=== PATIENT | female | born 1935 | race Caucasian/White ===

== ENCOUNTER 2020-03-03 16:36 | Observation (INO) | payer MEDICARE ==
--- NOTE | 2020-03-03 18:03 | ED ---
General Adult HPI - General Source: patient Mode of arrival: wheelchair Limitations: physical limitation <Jennifer Tuttle - Last Filed: 03/03/20 19:02> <Tomas Manzo - Last Filed: 03/03/20 23:27> - General Chief complaint: Extremity Problem,Nontraumatic Stated complaint: Leg swelling, vaginal pain, fall Time Seen by Provider: 03/03/20 17:13 - History of Present Illness Initial comments: Patient is an 84-year-old female presenting to the emergency Department with complaints of pain in her right groin as well as swelling of her right lower leg. Patient states she has fallen multiple times today secondary to not be able to put weight on her right lower extremity. Patient's son is here with her now and is providing some of the history. Patient does live with his son. The son states that she normally can get around fairly well with her walker but the last 2 days that has been declining in today she was not able to. Patient denies any previous surgeries of her hips or knees. She denies any previous falls that started this pain. She does take Plavix. She denies history of blood clots. The patient also noted that the patient was complaining of dizziness and seemed "slightly altered this morning." Patient denies any chest pain, shortness of breath. She does admit to very mild cough, no abdominal pain, no urinary complaints. She denies any dizziness, headache, blurry vision at this time. She has no further complaints. Upon arrival to the ER, her vital signs are stable. (Jennifer Tuttle) - Related Data Home Medications Medication Instructions Recorded Confirmed Acetaminophen [Tylenol Extra 500 mg PO BID 03/03/20 03/03/20 Strength] Clopidogrel [Plavix] 75 mg PO DAILY 03/03/20 03/03/20 Lisinopril-Hctz 20-12.5 mg 1 tab PO DAILY 03/03/20 03/03/20 [Zestoretic 20-12.5] Lovastatin [Mevacor] 40 mg PO HS 03/03/20 03/03/20 Metoprolol Tartrate [Lopressor] 12.5 mg PO BID 03/03/20 03/03/20 Multivitamins, Thera [Multivitamin 1 tab PO DAILY 03/03/20 03/03/20 (formulary)] Allergies Allergy/AdvReac Type Severity Reaction Status Date / Time No Known Allergies Allergy Verified 03/03/20 20:03 Review of Systems ROS Other: All systems not noted in ROS Statement are negative. <Jennifer Tuttle - Last Filed: 03/03/20 19:02> ROS Other: All systems not noted in ROS Statement are negative. <Tomas Manzo - Last Filed: 03/03/20 23:27> ROS Statement: Those systems with pertinent positive or pertinent negative responses have been documented in the HPI. Past Medical History Past Medical History: Hyperlipidemia, Hypertension History of Any Multi-Drug Resistant Organisms: None Reported Past Surgical History: Cardiac Valve Replacement, Heart Catheterization With Stent Additional Past Surgical History / Comment(s): AAA REPAIR Past Psychological History: No Psychological Hx Reported Smoking Status: Never smoker Past Alcohol Use History: None Reported Past Drug Use History: None Reported <Jennifer Tuttle - Last Filed: 03/03/20 19:02> General Exam Limitations: physical limitation <Jennifer Tuttle - Last Filed: 03/03/20 19:02> - General Exam Comments Initial Comments: GENERAL: Well-appearing, well-nourished and in no acute distress. HEAD: Atraumatic, normocephalic. EYES: Pupils equal round and reactive to light, extraocular movements intact, sclera anicteric, conjunctiva are normal. ENT: TMs normal, nares patent, oropharynx clear without exudates. Moist mucous membr anes. NECK: Normal range of motion, supple without lymphadenopathy or JVD. LUNGS: Breath sounds clear to auscultation bilaterally and equal. No wheezes rales or rhonchi. HEART: Regular rate and rhythm without murmurs, rubs or gallops. ABDOMEN: Soft, nontender, normoactive bowel sounds. No guarding, no rebound. No masses appreciated. : Deferred EXTREMITIES: Patient has pain-free range of motion of the right hip with some minimal pain with external and internal range of motion. She does have mildly increased right lower leg edema when compared to the left. She is neurovascular intact. There is no overlying erythema or deformity seen. No clubbing or cyanosis. NEUROLOGICAL: Cranial nerves II through XII grossly intact. Normal speech. PSYCH: Normal mood, normal affect. SKIN: Warm, Dry, normal turgor, no rashes or lesions noted. (Jennifer Tuttle) Course Vital Signs 03/03/20 03/03/20 16:50 19:33 Temperature 97.4 F L 97.9 F Pulse Rate 64 68 Respiratory 18 16 Rate Blood Pressure 128/61 127/70 O2 Sat by Pulse 100 98 Oximetry EKG Findings - EKG Comments: EKG Findings:: Normal sinus rhythm, RBBB, biphasic block, no signs of acute ischemia. Ventricular rate 62, WA interval 154, QT 470. <Jennifer Tuttle - Last Filed: 03/03/20 19:02> Medical Decision Making - Lab Data Result diagrams: 03/03/20 17:55 03/03/20 17:55 <Jennifer Tuttle - Last Filed: 03/03/20 19:02> - Lab Data Result diagrams: 03/03/20 17:55 03/03/20 17:55 <Tomas Manzo - Last Filed: 03/03/20 23:27> - Medical Decision Making The patient was endorsed me at our shift change by my physician diploma medical assistant pending ultrasound and UA. Ultrasound showed no evidence of DVT there is a popliteal cyst however. UA no current evidence of UTI. I did discuss case with patient and family. I also discussed case with Dr. Purvis. Patient will be admitted for IV hydration and further evaluation area patient is a fall risk. (Tomas Manzo) - Lab Data Lab Results 03/03/20 03/03/20 03/03/20 Range/Units 17:55 17:55 17:55 WBC 10.3 (3.8-10.6) k/uL RBC 4.38 (3.80-5.40) m/uL Hgb 13.6 (11.4-16.0) gm/dL Hct 39.9 (34.0-46.0) % MCV 91.1 (80.0-100.0) fL MCH 31.1 (25.0-35.0) pg MCHC 34.1 (31.0-37.0) g/dL RDW 12.8 (11.5-15.5) % Plt Count 191 (150-450) k/uL Neutrophils % 82 % Lymphocytes % 10 % Monocytes % 6 % Eosinophils % 1 % Basophils % 0 % Neutrophils # 8.5 H (1.3-7.7) k/uL Lymphocytes # 1.0 (1.0-4.8) k/uL Monocytes # 0.7 (0-1.0) k/uL Eosinophils # 0.1 (0-0.7) k/uL Basophils # 0.0 (0-0.2) k/uL Sodium 138 (137-145) mmol/L Potassium 3.8 (3.5-5.1) mmol/L Chloride 102 (98-107) mmol/L Carbon Dioxide 29 (22-30) mmol/L Anion Gap 7 mmol/L BUN 25 H (7-17) mg/dL Creatinine 0.83 (0.52-1.04) mg/dL Est GFR (CKD-EPI)AfAm 74 (>60 ml/min/1.73 sqM) Est GFR (CKD-EPI)NonAf 64 (>60 ml/min/1.73 sqM) Glucose 111 H (74-99) mg/dL Calcium 9.9 (8.4-10.2) mg/dL Magnesium 2.1 (1.6-2.3) mg/dL Total Bilirubin 1.0 (0.2-1.3) mg/dL AST 34 (14-36) U/L ALT 20 (4-34) U/L Alkaline Phosphatase 117 (38-126) U/L Troponin I 0.014 (0.000-0.034) ng/mL Total Protein 7.5 (6.3-8.2) g/dL Albumin 4.7 (3.5-5.0) g/dL Urine Color Urine Appearance (Clear) Urine pH (5.0-8.0) Ur Specific [place] (1.001-1.035) Urine Protein (Negative) Urine Glucose (UA) (Negative) Urine Ketones (Negative) Urine Blood (Negative) Urine Nitrite (Negative) Urine Bilirubin (Negative) Urine Urobilinogen (<2.0) mg/dL Ur Leukocyte Esterase (Negative) Urine RBC (0-5) /hpf Urine WBC (0-5) /hpf Ur Squamous Epith Cells (0-4) /hpf Urine Bacteria (None) /hpf Hyaline Casts (0-2) /lpf Urine Mucus (None) /hpf 06/25/20 Range/Units 19:20 WBC (3.8-10.6) k/uL RBC (3.80-5.40) m/uL Hgb (11.4-16.0) gm/dL Hct (34.0-46.0) % MCV (80.0-100.0) fL MCH (25.0-35.0) pg MCHC (31.0-37.0) g/dL RDW (11.5-15.5) % Plt Count (150-450) k/uL Neutrophils % % Lymphocytes % % Monocytes % % Eosinophils % % Basophils % % Neutrophils # (1.3-7.7) k/uL Lymphocytes # (1.0-4.8) k/uL Monocytes # (0-1.0) k/uL Eosinophils # (0-0.7) k/uL Basophils # (0-0.2) k/uL Sodium (137-145) mmol/L Potassium (3.5-5.1) mmol/L Chloride (98-107) mmol/L Carbon Dioxide (22-30) mmol/L Anion Gap mmol/L BUN (7-17) mg/dL Creatinine (0.52-1.04) mg/dL Est GFR (CKD-EPI)AfAm (>60 ml/min/1.73 sqM) Est GFR (CKD-EPI)NonAf (>60 ml/min/1.73 sqM) Glucose (74-99) mg/dL Calcium (8.4-10.2) mg/dL Magnesium (1.6-2.3) mg/dL Total Bilirubin (0.2-1.3) mg/dL AST (14-36) U/L ALT (4-34) U/L Alkaline Phosphatase (38-126) U/L Troponin I (0.000-0.034) ng/mL Total Protein (6.3-8.2) g/dL Albumin (3.5-5.0) g/dL Urine Color Light Yellow Urine Appearance Clear (Clear) Urine pH 6.0 (5.0-8.0) Ur Specific [place] 1.012 (1.001-1.035) Urine Protein Negative (Negative) Urine Glucose (UA) Negative (Negative) Urine Ketones Trace H (Negative) Urine Blood Trace H (Negative) Urine Nitrite Negative (Negative) Urine Bilirubin Negative (Negative) Urine Urobilinogen <2.0 (<2.0) mg/dL Ur Leukocyte Esterase Negative (Negative) Urine RBC 3 (0-5) /hpf Urine WBC 1 (0-5) /hpf Ur Squamous Epith Cells 1 (0-4) /hpf Urine Bacteria Rare H (None) /hpf Hyaline Casts 1 (0-2) /lpf Urine Mucus Rare H (None) /hpf Disposition <Jennifer Tuttle - Last Filed: 03/03/20 19:02> <Tomas Manzo - Last Filed: 03/03/20 23:27> Clinical Impression: Acute confusional state, Frequent falls, Failure to thrive, Dizzy spells, Dehydration Disposition: ADMITTED IP TO THIS [facility] Condition: Fair Referrals: Candie Purvis MD [Primary Care Provider] - 1-2 days
[2020-03-03 18:16] LABS: Basophils % (A) 0 %; Eosinophils # (A) 0.1 k/uL (0-0.7); Eosinophils % (A) 1 %; HCT 39.9 % (34.0-46.0); HGB 13.6 gm/dL (11.4-16.0); Lymphocytes % (A) 10 %; MCH 31.1 pg (25.0-35.0); MCHC 34.1 g/dL (31.0-37.0); MCV 91.1 fL (80.0-100.0); Mean Platelet Volume 7.5; Monocytes # (A) 0.7 k/uL (0-1.0); Monocytes % (A) 6 %; Neutrophils # (A) 8.5 k/uL (1.3-7.7); Neutrophils % (A) 82 %; Platelet Count 191 k/uL (150-450); RBC 4.38 m/uL (3.80-5.40); RDW 12.8 % (11.5-15.5); WBC 10.3 k/uL (3.8-10.6)
--- NOTE | 2020-03-03 18:18 | XR ---
EXAMINATION TYPE: XR Hip Complete RT DATE OF EXAM: 03/03/2020 COMPARISON: NONE HISTORY: Right groin pain TECHNIQUE: 2 views FINDINGS: I see no fracture nor dislocation. Hip joint space is fairly normal. Sacroiliac joint is no rmal. IMPRESSION: No acute abnormality of the pelvis and right hip.
--- NOTE | 2020-03-03 18:20 | XR ---
EXAMINATION TYPE: XR chest 2V DATE OF EXAM: 03/03/2020 COMPARISON: NONE HISTORY: Weakness TECHNIQUE: 2 views FINDINGS: There is no heart failure. There is general coarsening of interstitial markings. There is c ardiac valve surgery. Thoracic aorta is atheromatous. There is no pleural effusion. Bony thorax is in tact. IMPRESSION: Pulmonary mild fibrotic changes. No heart failure seen.
[2020-03-03 18:22] LABS: Albumin 4.7 g/dL (3.5-5.0); Calcium 9.9 mg/dL (8.4-10.2); Magnesium 2.1 mg/dL (1.6-2.3); Potassium 3.8 mmol/L (3.5-5.1); Total Protein 7.5 g/dL (6.3-8.2)
--- NOTE | 2020-03-03 19:35 | US ---
EXAMINATION TYPE: US venous doppler duplex LE RT DATE OF EXAM: 03/03/2020 7:12 PM COMPARISON: NONE CLINICAL HISTORY: pain, swelling. Pain, swelling right lower extremity. No hx of DVT. SIDE PERFORMED: Right TECHNIQUE: The lower extremity deep venous system is examined utilizing real time linear array sonog bo with graded compression, doppler sonography and color-flow sonography. VESSELS IMAGED: External Iliac Vein (EIV) Common Femoral Vein Deep Femoral Vein Greater Saphenous Vein * Femoral Vein Popliteal Vein Small Saphenous Vein * Proximal Calf Veins (* superficial vessels) Right Leg: No evidence of DVT in veins imaged at this time from prox calf veins to EIV. Complex area seen medial popliteal area: 4.5 x 1.4 x 0.8 cm. IMPRESSION: No sign of deep vein thrombosis in the right leg. Popliteal cyst is noted.
[2020-03-03 19:54] LABS: Appearance,Urine Clear (Clear); Bacteria,Urine Rare /hpf; Bilirubin,Urine Negative (Negative); Blood,Urine Trace (Negative); Color,Urine Light Yellow; Glucose,Urine (UA) Negative (Negative); Hyaline Casts,Urine 1 /lpf (0-2); Ketones,Urine Trace (Negative); Leukocyte Esterase,Urine Negative (Negative); Mucus,Urine Rare /hpf; Nitrite,Urine Negative (Negative); Protein,Urine Negative (Negative); RBC,Urine 3 /hpf (0-5); Specific Gravity,Urine 1.012 (1.001-1.035); Squamous Epithelial Cell,Urine 1 /hpf (0-4); Urobilinogen,Urine <2.0 mg/dL (<2.0); WBC,Urine 1 /hpf (0-5)
[2020-03-03] MEDS ORDERED: ACETAMINOPHEN TAB 325 MG TAB PO STA (23:22)
[2020-03-03] MEDS ORDERED: NALOXONE 0.4 MG/ML 1 ML VIAL IV PRN (23:27)
[2020-03-04] MEDS: SODIUM CHLORIDE 0.9% 1,000 ML IV SCH ×2 (00:09→13:12)
--- NOTE | 2020-03-04 10:53 | P.HPIM ---
History of Present Illness H&P Date: 03/04/20 Chief Complaint: Fall This is an 84-year-old female patient of Dr. Purvis. with past medical history of hypertension, hyperlipidemia, coronary artery disease status post stent, AAA repair. Patient is currently living at home with her son. She apparently was walking with her walker and she states she lost her balance and fell onto her left side. She is complaining of pain in the right groin which she has had chronically. Patient came into [facility] emergency center for evaluation. Chest x-ray showed pulmonary mild fibrotic changes. No heart failure. Right hip x-ray showed no acute fracture. Venous Doppler of the right lower extremity was negative for DVT. CBC was unremarkable. BUN 25 creatinine 0.83, electrolytes within normal limits. Blood sugar 111. Liver function tests normal. Troponin 0.014. EKG sinus rhythm with no acute ST changes. Urinalysis trace ketones and trace blood, rare blood. Patient places in observation status, PT and OT evaluations. Review of Systems Constitutional: Reports fatigue, Denies chills, Denies fever Eyes: denies blurred vision, denies pain Ears, nose, mouth and throat: Denies dysphagia, Denies headache, Denies nasal congestion, Denies nasal discharge, Denies sore throat, Denies vertigo Cardiovascular: Reports leg edema, Denies chest pain, Denies decreased exercise tolerance, Denies dyspnea on exertion, Denies lightheadedness, Denies shortness of breath, Denies syncope Respiratory: Denies cough, Denies cough with sputum, Denies dyspnea, Denies excessive sputum, Denies hemoptysis, Denies home oxygen, Denies respiratory infections, Denies sleep apnea Gastrointestinal: Denies abdominal pain, Denies diarrhea, Denies loss of appetite, Denies nausea, Denies vomiting Genitourinary: Denies dysuria, Denies hematuria, Denies urgency, Denies urinary frequency Menstruation: Reports postmenopausal Musculoskeletal: Denies frequent falls, Denies gait dysfunction, Denies myalgias Integumentary: Denies pruritus, Denies rash, Denies wounds Neurological: Denies change in speech, Denies gait dysfunction, Denies head injury, Denies numbness, Denies vertigo, Denies weakness Psychiatric: Denies anxiety, Denies depression Endocrine: Denies fatigue, Denies weight change Past Medical History Past Medical History: Hyperlipidemia, Hypertension History of Any Multi-Drug Resistant Organisms: None Reported Past Surgical History: Cardiac Valve Replacement, Heart Catheterization With Stent Additional Past Surgical History / Comment(s): AAA REPAIR Past Psychological History: No Psychological Hx Reported Smoking Status: Never smoker Past Alcohol Use History: None Reported Additional Past Alcohol Use History / Comment(s): Patient is a lifelong nonsmoker, no alcohol abuse. Patient lives at home with her son, uses walker for ambulation. Past Drug Use History: None Reported - Past Family History Father Additional Family Medical History / Comment(s): Father at age 88 from old age. Mother Additional Family Medical History / Comment(s): Mother at age 80 from old age. Brother(s) Additional Family Medical History / Comment(s): Patient had 2 brothers both have passed. Patient does not know their medical history. Sister(s) Additional Family Medical History / Comment(s): Patient has one sister that from Alzheimer's. Patient has 2 sons with no major medical problems. Medications and Allergies Home Medications Medication Instructions Recorded Confirmed Type Acetaminophen [Tylenol Extra 500 mg PO BID 03/03/20 03/03/20 History Strength] Clopidogrel [Plavix] 75 mg PO DAILY 03/03/20 03/03/20 History Lisinopril-Hctz 20-12.5 mg 1 tab PO DAILY 03/03/20 03/03/20 History [Zestoretic 20-12.5] Lovastatin [Mevacor] 40 mg PO HS 03/03/20 03/03/20 History Metoprolol Tartrate [Lopressor] 12.5 mg PO BID 03/03/20 03/03/20 History Multivitamins, Thera [Multivitamin 1 tab PO DAILY 03/03/20 03/03/20 History (formulary)] Allergies Allergy/AdvReac Type Severity Reaction Status Date / Time No Known Allergies Allergy Verified 03/03/20 20:03 Physical Exam Vitals: Vital Signs Temp Pulse Resp BP Pulse Ox 03/04/20 04:22 62 14 92/54 97 03/03/20 23:24 97.7 F 69 15 148/88 95 03/03/20 19:33 97.9 F 68 16 127/70 98 03/03/20 16:50 97.4 F L 64 18 128/61 100 Intake and Output 03/03/20 03/04/20 03/04/20 22:59 06:59 14:59 Other: Voiding Method Toilet Diaper Incontinent Weight 70.307 kg Physical Examination Gen: This is an 84-year-old female. She is resting on the ER stret marie and appears to be comfortable and in no acute distress.] HEENT: Head is atraumatic, normocephalic. Pupils equal, round. Sclerae is anicteric. Oral mucous membranes somewhat dry. NECK: Supple. No JVD. No lymphadenopathy. No thyromegaly. LUNGS: Clear to auscultation. No wheezes or rhonchi. No intercostal retractions. HEART: Regular rate and rhythm. No murmur. ABDOMEN: Soft. Bowel sounds are present. No masses. No tenderness. Tenderness to the right groin. EXTREMITIES: No pedal edema. No calf tenderness. Dorsalis pedis palpable bilaterally. NEUROLOGICAL: Patient is awake, alert and oriented x3. Cranial nerves 2 through 12 are grossly intact. Results CBC & Chem 7: 03/03/20 17:55 03/03/20 17:55 Labs: Abnormal Lab Results - Last 24 Hours (Table) 03/03/20 03/03/20 03/03/20 Range/Units 17:55 17:55 19:20 Neutrophils # 8.5 H (1.3-7.7) k/uL BUN 25 H (7-17) mg/dL Glucose 111 H (74-99) mg/dL Urine Ketones Trace H (Negative) Urine Blood Trace H (Negative) Urine Bacteria Rare H (None) /hpf Urine Mucus Rare H (None) /hpf Thrombosis Risk Factor Assmnt - DVT/VTE Prophylaxis DVT/VTE Prophylaxis: Pharmacologic Prophylaxis ordered Assessment and Plan Plan: 1. Multiple falls with generalized debilitation and increasing weakness of unclear etiology. PT and OT. 2. Hypertension. Continue Zestoretic 1 daily, Lopressor 12.5 mg twice daily. 3. History of coronary artery disease with stent placement. Continue Plavix 75 mg daily, Lipitor 10 mg at bedtime and Lopressor. 4. AAA status post repair. Continue Plavix and Lipitor. 5. GI prophylaxis. Protonix. 6. DVT prophylaxis. Heparin subcu. 7. COVID-19 testing in process. Patient placed as observation status. Discharge plan: To be determined Impression and plan of care have been directed as dictated by the signing physician. Mariya Avalos nurse practitioner acting as scribe for signing physician.
[2020-03-04] MEDS: HEPARIN SODIUM,PORCINE 5,000 UNIT/ML 1 ML VIAL SQ SCH ×2 (13:10→20:53)
[2020-03-04] MEDS: CLOPIDOGREL 75 MG TAB PO SCH (13:10)
[2020-03-04] MEDS: PANTOPRAZOLE 40 MG TABLET PO SCH (13:11)
[2020-03-04] MEDS: ACETAMINOPHEN TAB 500 MG TAB PO SCH ×2 (13:11→20:52)
[2020-03-04] MEDS: MULTIVITAMINS, THERA 1 EACH TAB PO SCH (13:15)
[2020-03-04] MEDS: METOPROLOL TARTRATE 12.5 MG TAB PO SCH ×2 (13:47→20:53)
[2020-03-04] MEDS: LISINOPRIL-HCTZ 20-12.5 MG 1 EACH TAB PO SCH (13:47)
[2020-03-04] MEDS: ATORVASTATIN 10 MG TAB PO SCH (20:53)
[2020-03-05] MEDS: SODIUM CHLORIDE 0.9% 1,000 ML IV SCH ×2 (03:45→15:36)
[2020-03-05] MEDS: ACETAMINOPHEN TAB 500 MG TAB PO SCH ×2 (05:32→19:35)
[2020-03-05] MEDS: PANTOPRAZOLE 40 MG TABLET PO SCH (08:01)
[2020-03-05] MEDS: CLOPIDOGREL 75 MG TAB PO SCH (08:01)
[2020-03-05] MEDS: METOPROLOL TARTRATE 12.5 MG TAB PO SCH ×2 (08:01→20:59)
[2020-03-05] MEDS: MULTIVITAMINS, THERA 1 EACH TAB PO SCH (08:01)
[2020-03-05] MEDS: HEPARIN SODIUM,PORCINE 5,000 UNIT/ML 1 ML VIAL SQ SCH ×2 (08:01→20:59)
[2020-03-05] MEDS: LISINOPRIL-HCTZ 20-12.5 MG 1 EACH TAB PO SCH (08:03)
--- NOTE | 2020-03-05 09:44 | P.PN ---
Subjective Progress Note Date: 03/05/20 This is an 84-year-old female patient of Dr. Purvis. with past medical history of hypertension, hyperlipidemia, coronary artery disease status post stent, AAA repair. Patient is currently living at home with her son. She apparently was walking with her walker and she states she lost her balance and fell onto her left side. She is complaining of pain in the right groin which she has had chronically. Patient came into [facility] emergency center for evaluation. Chest x-ray showed pulmonary mild fibrotic changes. No heart failure. Right hip x-ray showed no acute fracture. Venous Doppler of the right lower extremity was negative for DVT. CBC was unremarkable. BUN 25 creatinine 0.83, electrolytes within normal limits. Blood sugar 111. Liver function tests normal. Troponin 0.014. EKG sinus rhythm with no acute ST changes. Urinalysis trace ketones and trace blood, rare blood. Patient places in observation status, PT and OT evaluations. 03/05: Patient is laying down in bed she continues to have pain in the right groin area even though her right hip x-rays negative we will check computed tomography scan of the right hip to make sure there is no acute fracture, and in that case we will consult orthopedic surgery for evaluation. Patient denies any chest pain, shortness breath, she has no abdominal pain, she ate her breakfast she has no fever or chills. Objective - Vital Signs Vital signs: Vital Signs Temp 98.2 F 03/05/20 05:00 Pulse 66 03/05/20 05:00 Resp 18 03/05/20 05:00 BP 147/77 03/05/20 05:00 Pulse Ox 96 03/05/20 05:00 Intake & Output 03/04/20 03/05/20 03/05/20 18:59 06:59 18:59 Intake Total 300 Balance 300 Weight 70.307 kg Intake: Tube Feeding 300 Other: Voiding Method Toilet Diaper Incontinent # Voids 1 3 1 - Exam Review of Systems Constitutional: Reports fatigue, Denies chills, Denies fever Eyes: denies blurred vision, denies pain Ears, nose, mouth and throat: Denies dysphagia, Denies headache, Denies nasal congestion, Denies nasal discharge, Denies sore throat, Denies vertigo Cardiovascular: Reports leg edema, Denies chest pain, Denies decreased exercise tolerance, Denies dyspnea on exertion, Denies lightheadedness, Denies shortness of breath, Denies syncope Respiratory: Denies cough, Denies cough with sputum, Denies dyspnea, Denies excessive sputum, Denies hemoptysis, Denies home oxygen, Denies respiratory infections, Denies sleep apnea Gastrointestinal: Denies abdominal pain, Denies diarrhea, Denies loss of appetite, Denies nausea, Denies vomiting Genitourinary: Denies dysuria, Denies hematuria, Denies urgency, Denies urinary frequency Menstruation: Reports postmenopausal Musculoskeletal: Denies frequent falls, Denies gait dysfunction, Denies myalgias Integumentary: Denies pruritus, Denies rash, Denies wounds Neurological: Denies change in speech, Denies gait dysfunction, Denies head injury, Denies numbness, Denies vertigo, Denies weakness Psychiatric: Denies anxiety, Denies depression Endocrine: Denies fatigue, Denies weight change Physical Examination Gen: This is an 84-year-old female. She is resting on the ER stretcher and appears to be comfortable and in no acute distress.] HEENT: Head is atraumatic, normocephalic. Pupils equal, round. Sclerae is anicteric. Oral mucous membranes somewhat dry. NECK: Supple. No JVD. No lymphadenopathy. No thyromegaly. LUNGS: Clear to auscultation. No wheezes or rhonchi. No intercostal retractions. HEART: Regular rate and rhythm. No murmur. ABDOMEN: Soft. Bowel sounds are present. No masses. No tenderness. Tenderness to the right groin. EXTREMITIES: No pedal edema. No calf tenderness. Dorsalis pedis palpable bilaterally. NEUROLOGICAL: Patient is awake, alert and oriented x3. Cranial nerves 2 through 12 are grossly intact. - Labs CBC & Chem 7: 03/03/20 17:55 03/03/20 17:55 Assessment and Plan Assessment: Assessment and Plan Plan: 1. Multiple falls with generalized debilitation and increasing weakness of unclear etiology, with right sided hip pain. Check computed tomography scan of the right hip without contrast. 2. Hypertension. Continue Zestoretic 1 daily, Lopressor 12.5 mg twice daily. 3. History of coronary artery disease with stent placement. Continue Plavix 75 mg daily, Lipitor 10 mg at bedtime and Lopressor. 4. AAA status post repair. Continue Plavix and Lipitor. 5. GI prophylaxis. Protonix. 6. DVT prophylaxis. Heparin subcu. 7. COVID-19 testing in process. 8. High risk of falling, PT evaluation, likely will require ECF placement. 9. Full code. 10. Prognosis is guarded.
--- NOTE | 2020-03-05 13:37 | CT ---
EXAMINATION TYPE: CT pelvis wo con DATE OF EXAM: 03/05/2020 COMPARISON: Previous study dated 03/05/2020 HISTORY: Right hip pain after fall. CT DLP: 383.8 mGycm Automated exposure control for dose reduction was used. FINDINGS: There is an aortoiliac stent graft in place. There is degenerative disc disease and a vacuum phenomena present at L4-5. There is facet arthropathy present in the lower lumbar facets. There are mild degenerative changes in both hips with superior joint space loss. No fracture or dislo cation is seen. IMPRESSION: 1. NO ACUTE OSSEOUS LESION. 2. DEGENERATIVE CHANGE.
[2020-03-05] MEDS: ATORVASTATIN 10 MG TAB PO SCH (20:59)
[2020-03-06] MEDS: ACETAMINOPHEN TAB 500 MG TAB PO SCH ×2 (05:28→17:52)
[2020-03-06] MEDS: SODIUM CHLORIDE 0.9% 1,000 ML IV SCH (05:29)
[2020-03-06 08:23] LABS: Albumin 3.3 g/dL (3.5-5.0); Total Bilirubin 0.6 mg/dL (0.2-1.3); Total Protein 5.7 g/dL (6.3-8.2)
[2020-03-06 08:28] LABS: Basophils % (A) 0 %; Eosinophils # (A) 0.1 k/uL (0-0.7); Eosinophils % (A) 1 %; HCT 34.8 % (34.0-46.0); HGB 11.8 gm/dL (11.4-16.0); Lymphocytes # (A) 0.9 k/uL (1.0-4.8); Lymphocytes % (A) 11 %; MCH 31.2 pg (25.0-35.0); MCV 91.7 fL (80.0-100.0); Mean Platelet Volume 8.2; Monocytes # (A) 0.6 k/uL (0-1.0); Monocytes % (A) 7 %; Neutrophils # (A) 6.7 k/uL (1.3-7.7); Neutrophils % (A) 80 %; Platelet Count 165 k/uL (150-450); RBC 3.79 m/uL (3.80-5.40); RDW 12.8 % (11.5-15.5); WBC 8.4 k/uL (3.8-10.6)
--- NOTE | 2020-03-06 08:45 | P.CNOR ---
History of Present Illness - [facility] Consult date: 03/06/20 Consult reason: other (Right hip/groin pain ) History of present illness: The patient is an 84-year-old female who presents with a two-year history of progressive right hip/groin pain. She notes it started after a vascular procedure utilizing her right groin. She notes anterior groin and thigh pain. She normally ambulates with her walker. She has had a recent history of falls. Review of Systems Denies fevers or chills, denies recent weight gain or loss Musculoskeletal: Reports leg numbness/tingling (Right thigh) Past Medical History Past Medical History: Hyperlipidemia, Hypertension, Vascular Disorder Additional Past Medical History / Comment(s): Pt states she has been having balance issues and falls lately, DDD History of Any Multi-Drug Resistant Organisms: None Reported Past Surgical History: Cardiac Valve Replacement, Heart Catheterization With Stent Additional Past Surgical History / Comment(s): Cardiac valve replacement, bilateral cataracts removed with lens implants. Past Anesthesia/Blood Transfusion Reactions: No Reported Reaction Date of Last Stent Placement:: 2017 Smoking Status: Former smoker - Past Family History Father Family Medical History: No Reported History Additional Family Medical History / Comment(s): Father at age 88 from old age. Mother Family Medical History: No Reported History Additional Family Medical History / Comment(s): Mother at age 80 from old age. Brother(s) Additional Family Medical History / Comment(s): Patient had 2 brothers both have passed. Patient does not know their medical history. Sister(s) Additional Family Medical History / Comment(s): Patient has one sister that from Alzheimer's. Patient has 2 sons with no major medical problems. Medications and Allergies Home Medications Medication Instructions Recorded Confirmed Type Acetaminophen [Tylenol Extra 500 mg PO BID 03/03/20 03/03/20 History Strength] Clopidogrel [Plavix] 75 mg PO DAILY 03/03/20 03/03/20 History Lisinopril-Hctz 20-12.5 mg 1 tab PO DAILY 03/03/20 03/03/20 History [Zestoretic 20-12.5] Lovastatin [Mevacor] 40 mg PO HS 03/03/20 03/03/20 History Metoprolol Tartrate [Lopressor] 12.5 mg PO BID 03/03/20 03/03/20 History Multivitamins, Thera [Multivitamin 1 tab PO DAILY 03/03/20 03/03/20 History (formulary)] Allergies Allergy/AdvReac Type Severity Reaction Status Date / Time No Known Allergies Allergy Verified 03/03/20 20:03 Physical Examination - Hip right Gait: other (Not tested) Tenderness with palpation: anterior ROM: extension: normal ROM: flexion: 80 degrees ROM: internal rotation: 10 degrees ROM: external rotation: 60 degrees Crepitus with motion: No Strength: extension: 5/5 Strength: flexion: 5/5 Strength: abduction: 5/5 Strength: adduction: 5/5 Results Symmetric passive motion left hip Tender right inguinal ligament 2+ right femoral, pedal pulses Light touch diminished right lateral thigh EHL/FHL/18/gastroc/quad/ham strings 5/5 bilaterally Mild lumbar spine tenderness Negative straight leg raise - Labs Labs: Abnormal Lab Results - Last 24 Hours (Table) 03/06/20 03/06/20 Range/Units 07:05 07:05 RBC 3.79 L (3.80-5.40) m/uL Lymphocytes # 0.9 L (1.0-4.8) k/uL BUN 18 H (7-17) mg/dL Glucose 102 H (74-99) mg/dL Total Protein 5.7 L (6.3-8.2) g/dL Albumin 3.3 L (3.5-5.0) g/dL H & H 03/03/20 03/06/20 Range/Units 17:55 07:05 Hgb 13.6 11.8 (11.4-16.0) gm/dL Hct 39.9 34.8 (34.0-46.0) % Result Diagrams: 03/06/20 07:05 03/06/20 07:05 - Diagnostic results Hip x-ray: image reviewed (Mild degenerative changes, no definite osseous abnormality) Hip CT: image reviewed (No definite fracture line) Assessment and Plan Assessment: Right groin/thigh pain after previous vascular procedure 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 I recommend PT /OT for ambulation with a walker along with analgesia. She may benefit from a vascular surgery evaluation regarding her right groin. Thank you for this consultation. Time with Patient: Greater than 30
[2020-03-06] MEDS: CLOPIDOGREL 75 MG TAB PO SCH (09:03)
[2020-03-06] MEDS: PANTOPRAZOLE 40 MG TABLET PO SCH (09:03)
[2020-03-06] MEDS: METOPROLOL TARTRATE 12.5 MG TAB PO SCH ×2 (09:03→20:12)
[2020-03-06] MEDS: LISINOPRIL-HCTZ 20-12.5 MG 1 EACH TAB PO SCH (09:03)
[2020-03-06] MEDS: MULTIVITAMINS, THERA 1 EACH TAB PO SCH (09:03)
[2020-03-06] MEDS: HEPARIN SODIUM,PORCINE 5,000 UNIT/ML 1 ML VIAL SQ SCH ×2 (09:03→20:12)
--- NOTE | 2020-03-06 10:01 | P.PN ---
Subjective Progress Note Date: 03/06/20 This is an 84-year-old female patient of Dr. Purvis. with past medical history of hypertension, hyperlipidemia, coronary artery disease status post stent, AAA repair. Patient is currently living at home with her son. She apparently was walking with her walker and she states she lost her balance and fell onto her left side. She is complaining of pain in the right groin which she has had chronically. Patient came into [facility] emergency center for evaluation. Chest x-ray showed pulmonary mild fibrotic changes. No heart failure. Right hip x-ray showed no acute fracture. Venous Doppler of the right lower extremity was negative for DVT. CBC was unremarkable. BUN 25 creatinine 0.83, electrolytes within normal limits. Blood sugar 111. Liver function tests normal. Troponin 0.014. EKG sinus rhythm with no acute ST changes. Urinalysis trace ketones and trace blood, rare blood. Patient places in observation status, PT and OT evaluations. 03/05: Patient is laying down in bed she continues to have pain in the right groin area even though her right hip x-rays negative we will check computed tomography scan of the right hip to make sure there is no acute fracture, and in that case we will consult orthopedic surgery for evaluation. Patient denies any chest pain, shortness breath, she has no abdominal pain, she ate her breakfast she has no fever or chills. 03/06: Patient underwent computed tomography scan of the right hip as well as a pelvic area did not show any evidence of acute fracture just mild osteophytosis, she continues to have weakness in the right lower extremity, she is not able to lift her leg up, she was seen in consultation by orthopedic surgery was recommended that it may be related to nerve injury, physical therapy and occupational therapy is to continue the patient on the patient may require extended care facility for rehabilitation for the next 2-4 weeks. Objective - Vital Signs Vital signs: Vital Signs Temp 97.7 F 03/06/20 04:58 Pulse 63 03/06/20 04:58 Resp 15 03/06/20 04:58 BP 154/72 03/06/20 04:58 Pulse Ox 93 L 03/06/20 04:58 Intake & Output 03/05/20 03/06/20 03/06/20 18:59 06:59 18:59 Intake Total 1170 Output Total 700 Balance 470 Intake: Intake, IV Titration 920 Amount Sodium Chloride 0.9% 1, 920 000 ml @ 80 mls/hr IV . [id number] [facility] Rx#:[id number] Oral 250 Output: Urine 700 Other: Voiding Method Toilet Diaper Diaper Incontinent Incontinent # Voids 1 2 # Bowel Movements 1 - Exam - Exam Review of Systems Constitutional: Reports fatigue, Denies chills, Denies fever Eyes: denies blurred vision, denies pain Ears, nose, mouth and throat: Denies dysphagia, Denies headache, Denies nasal congestion, Denies nasal discharge, Denies sore throat, Denies vertigo Cardiovascular: Reports leg edema, Denies chest pain, Denies decreased exercise tolerance, Denies dyspnea on exertion, Denies lightheadedness, Denies shortness of breath, Denies syncope Respiratory: Denies cough, Denies cough with sputum, Denies dyspnea, Denies exc essive sputum, Denies hemoptysis, Denies home oxygen, Denies respiratory infections, Denies sleep apnea Gastrointestinal: Denies abdominal pain, Denies diarrhea, Denies loss of appetite, Denies nausea, Denies vomiting Genitourinary: Denies dysuria, Denies hematuria, Denies urgency, Denies urinary frequency Menstruation: Reports postmenopausal Musculoskeletal: Denies frequent falls, Denies gait dysfunction, Denies myalgias Integumentary: Denies pruritus, Denies rash, Denies wounds Neurological: Denies change in speech, Denies gait dysfunction, Denies head injury, Denies numbness, Denies vertigo, Denies weakness Psychiatric: Denies anxiety, Denies depression Endocrine: Denies fatigue, Denies weight change Physical Examination Gen: This is an 84-year-old female. She is resting on the ER stretcher and appears to be comfortable and in no acute distress.] HEENT: Head is atraumatic, normocephalic. Pupils equal, round. Sclerae is anicteric. Oral mucous membranes somewhat dry. NECK: Supple. No JVD. No lymphadenopathy. No thyromegaly. LUNGS: Clear to auscultation. No wheezes or rhonchi. No intercostal retractions. HEART: Regular rate and rhythm. No murmur. ABDOMEN: Soft. Bowel sounds are present. No masses. No tenderness. Tenderness to the right groin. EXTREMITIES: No pedal edema. No calf tenderness. Dorsalis pedis palpable bilaterally. NEUROLOGICAL: Patient is awake, alert and oriented x3. Cranial nerves 2 through 12 are grossly intact. - Labs CBC & Chem 7: 03/06/20 07:05 03/06/20 07:05 Labs: Abnormal Lab Results - Last 24 Hours (Table) 03/06/20 03/06/20 Range/Units 07:05 07:05 RBC 3.79 L (3.80-5.40) m/uL Lymphocytes # 0.9 L (1.0-4.8) k/uL BUN 18 H (7-17) mg/dL Glucose 102 H (74-99) mg/dL Total Protein 5.7 L (6.3-8.2) g/dL Albumin 3.3 L (3.5-5.0) g/dL Assessment and Plan Assessment: Assessment and Plan Plan: 1. Multiple falls with generalized debilitation and increasing weakness of unclear etiology, with right sided hip pain. Computed tomography scan did not show any evidence of acute abnormalities except for mild osteoarthritis, pelvic computed tomography scan is negative as well as orthopedic consultation appreciated, physical therapy is to be maintained patient, we rodríguez transferred to subacute rehabilitation likely [facility] in the next 24 hours 2. Hypertension. Continue Zestoretic 1 daily, Lopressor 12.5 mg twice daily. 3. History of coronary artery disease with stent placement. Continue Plavix 75 mg daily, Lipitor 10 mg at bedtime and Lopressor. 4. AAA status post repair. Continue Plavix and Lipitor. 5. GI prophylaxis. Protonix. 6. DVT prophylaxis. Heparin subcu. 7. COVID-19 testing in process. 8. High risk of falling, PT evaluation, likely will require ECF placement. 9. Full code. 10. Prognosis is guarded. 11. ECF for physical therapy and occupational therapy.
[2020-03-06] MEDS: ATORVASTATIN 10 MG TAB PO SCH (20:12)
[2020-03-06 22:48] VITALS: RESP 16
[2020-03-07] MEDS: ACETAMINOPHEN TAB 500 MG TAB PO PRN ×3 (02:44→14:25)
[2020-03-07] MEDS: traMADol 50 MG TAB PO SCH ×3 (09:12→21:15)
[2020-03-07] MEDS: CLOPIDOGREL 75 MG TAB PO SCH (09:15)
[2020-03-07] MEDS: MULTIVITAMINS, THERA 1 EACH TAB PO SCH (09:15)
[2020-03-07] MEDS: METOPROLOL TARTRATE 12.5 MG TAB PO SCH ×2 (09:15→21:15)
[2020-03-07] MEDS: HEPARIN SODIUM,PORCINE 5,000 UNIT/ML 1 ML VIAL SQ SCH ×2 (09:15→21:16)
[2020-03-07] MEDS: PANTOPRAZOLE 40 MG TABLET PO SCH (09:15)
[2020-03-07] MEDS: LISINOPRIL-HCTZ 20-12.5 MG 1 EACH TAB PO SCH (09:16)
[2020-03-07] MEDS: ATORVASTATIN 10 MG TAB PO SCH (21:15)
[2020-03-08 07:42] LABS: Basophils % (A) 1 %; Eosinophils # (A) 0.2 k/uL (0-0.7); Eosinophils % (A) 3 %; HCT 37.5 % (34.0-46.0); Lymphocytes # (A) 1.5 k/uL (1.0-4.8); Lymphocytes % (A) 22 %; MCH 29.3 pg (25.0-35.0); MCV 91.6 fL (80.0-100.0); Mean Platelet Volume 7.5; Monocytes # (A) 0.5 k/uL (0-1.0); Monocytes % (A) 7 %; Neutrophils # (A) 4.4 k/uL (1.3-7.7); Neutrophils % (A) 65 %; Platelet Count 202 k/uL (150-450); RDW 12.9 % (11.5-15.5); WBC 6.8 k/uL (3.8-10.6)
[2020-03-08 08:09] LABS: Albumin 3.6 g/dL (3.5-5.0); Calcium 9.1 mg/dL (8.4-10.2); Total Bilirubin 0.8 mg/dL (0.2-1.3); Total Protein 6.3 g/dL (6.3-8.2)
--- NOTE | 2020-03-08 08:33 | P.PN ---
Subjective Progress Note Date: 03/07/20 This is an 84-year-old female patient of Dr. Purvis. with past medical history of hypertension, hyperlipidemia, coronary artery disease status post stent, AAA repair. Patient is currently living at home with her son. She apparently was walking with her walker and she states she lost her balance and fell onto her left side. She is complaining of pain in the right groin which she has had chronically. Patient came into [facility] emergency center for evaluation. Chest x-ray showed pulmonary mild fibrotic changes. No heart failure. Right hip x-ray showed no acute fracture. Venous Doppler of the right lower extremity was negative for DVT. CBC was unremarkable. BUN 25 creatinine 0.83, electrolytes within normal limits. Blood sugar 111. Liver function tests normal. Troponin 0.014. EKG sinus rhythm with no acute ST changes. Urinalysis trace ketones and trace blood, rare blood. Patient places in observation status, PT and OT evaluations. 03/05: Patient is laying down in bed she continues to have pain in the right groin area even though her right hip x-rays negative we will check computed tomography scan of the right hip to make sure there is no acute fracture, and in that case we will consult orthopedic surgery for evaluation. Patient denies any chest pain, shortness breath, she has no abdominal pain, she ate her breakfast she has no fever or chills. 03/06: Patient underwent computed tomography scan of the right hip as well as a pelvic area did not show any evidence of acute fracture just mild osteophytosis, she continues to have weakness in the right lower extremity, she is not able to lift her leg up, she was seen in consultation by orthopedic surgery was recommended that it may be related to nerve injury, physical therapy and occupational therapy is to continue the patient on the patient may require extended care facility for rehabilitation for the next 2-4 weeks. 03/07:patient is laying down in bed she continues to have some pain in the right groin area. She is asking for something stronger than Tylenol she will be started on tramadol 50 mg orally 3 times every day, she will be seen by physical therapy again we are waiting for prior authorization for her to go to extended care facility she elected to go to [facility] for the next few weeks for physical therapy and occupational therapy due to the weakness of the right lower extre mity due to femoral nerve injury. Objective - Vital Signs Vital signs: Vital Signs Temp 98.8 F 03/08/20 04:26 Pulse 60 03/08/20 04:26 Resp 16 03/08/20 04:26 BP 116/67 03/08/20 04:26 Pulse Ox 94 L 03/08/20 04:26 Intake & Output 03/07/20 03/08/20 03/08/20 18:59 06:59 18:59 Intake Total 800 400 Output Total 600 Balance 200 400 Intake: Oral 800 400 Output: Urine 600 Other: Voiding Method Diaper Diaper Incontinent Incontinent # Voids 1 1 # Bowel Movements 1 - Exam - Exam Review of Systems Constitutional: Reports fatigue, Denies chills, Denies fever Eyes: denies blurred vision, denies pain Ears, nose, mouth and throat: Denies dysphagia, Denies headache, Denies nasal congestion, Denies nasal discharge, Denies sore throat, Denies vertigo Cardiovascular: Reports leg edema, Denies chest pain, Denies decreased exercise tolerance, Denies dyspnea on exertion, Denies lightheadedness, Denies shortness of breath, Denies syncope Respiratory: Denies cough, Denies cough with sputum, Denies dyspnea, Denies excessive sputum, Denies hemoptysis, Denies home oxygen, Denies respiratory infections, Denies sleep apnea Gastrointestinal: Denies abdominal pain, Denies diarrhea, Denies loss of appetite, Denies nausea, Denies vomiting Genitourinary: Denies dysuria, Denies hematuria, Denies urgency, Denies urinary frequency Menstruation: Reports postmenopausal Musculoskeletal: Denies frequent falls, Denies gait dysfunction, Denies myalgias Integumentary: Denies pruritus, Denies rash, Denies wounds Neurological: Denies change in speech, Denies gait dysfunction, Denies head injury, Denies numbness, Denies vertigo, Denies weakness Psychiatric: Denies anxiety, Denies depression Endocrine: Denies fatigue, Denies weight change Physical Examination Gen: This is an 84-year-old female. She is resting on the ER stretcher and appears to be comfortable and in no acute distress.] HEENT: Head is atraumatic, normocephalic. Pupils equal, round. Sclerae is anicteric. Oral mucous membranes somewhat dry. NECK: Supple. No JVD. No lymphadenopathy. No thyromegaly. LUNGS: Clear to auscultation. No wheezes or rhonchi. No intercostal retractions. HEART: Regular rate and rhythm. No murmur. ABDOMEN: Soft. Bowel sounds are present. No masses. No tenderness. Tenderness to the right groin. EXTREMITIES: No pedal edema. No calf tenderness. Dorsalis pedis palpable bilaterally. NEUROLOGICAL: Patient is awake, alert and oriented x3. Cranial nerves 2 through 12 are grossly intact. - Labs CBC & Chem 7: 03/08/20 06:57 03/08/20 06:57 Assessment and Plan Assessment: Assessment and Plan Plan: 1. Multiple falls with generalized debilitation and increasing weakness of unclear etiology, with right sided hip pain. Computed tomography scan did not show any evidence of acute abnormalities except for mild osteoarthritis, pelvic computed tomography scan is negative as well as orthopedic consultation a ppreciated, physical therapy is to be maintained patient, we rodríguez transferred to subacute rehabilitation likely [facility] in the next 24 hourswe will start the patient on tramadol 50 mg orally 3 times every day for pain control. 2. Hypertension. Continue Zestoretic 1 daily, Lopressor 12.5 mg twice daily. 3. History of coronary artery disease with stent placement. Continue Plavix 75 mg daily, Lipitor 10 mg at bedtime and Lopressor. 4. AAA status post repair. Continue Plavix and Lipitor. 5. GI prophylaxis. Protonix. 6. DVT prophylaxis. Heparin subcu. 7. COVID-19 testing in process. 8. High risk of falling, PT evaluation, likely will require ECF placement. 9. Full code. 10. Prognosis is guarded. 11. ECF for physical therapy and occupational therapyhopefully the next 24 juan rs.
--- NOTE | 2020-03-08 08:34 | P.DS ---
Providers Date of admission: 03/05/20 14:37 Expected date of discharge: 03/08/20 Attending physician: Candie Purvis Consults: 03/05/20 09:44 Consult Physician Routine Consulting Provider: Yahir Rm Consult Reason/Comments: Right hip pain Do you want consulting provider notified?: Yes Primary care physician: Candie Purvis [facility] Course: This is an 84-year-old female patient of Dr. Purvis. with past medical history of hypertension, hyperlipidemia, coronary artery disease status post stent, AAA repair. Patient is currently living at home with her son. She remedios arently was walking with her walker and she states she lost her balance and fell onto her left side. She is complaining of pain in the right groin which she has had chronically. Patient came into [facility] emergency center for evaluation. Chest x-ray showed pulmonary mild fibrotic changes. No heart failure. Right hip x-ray showed no acute fracture. Venous Doppler of the right lower extremity was negative for DVT. CBC was unremarkable. BUN 25 creatinine 0.83, electrolytes within normal limits. Blood sugar 111. Liver function tests normal. Troponin 0.014. EKG sinus rhythm with no acute ST changes. Urinalysis trace ketones and trace blood, rare blood. Patient places in observation status, PT and OT evaluations. 03/05: Patient is laying down in bed she continues to have pain in the right groin area even though her right hip x-rays negative we will check computed tomography scan of the right hip to make sure there is no acute fracture, and in that case we will consult orthopedic surgery for evaluation. Patient denies any chest pain, shortness breath, she has no abdominal pain, she ate her breakfast she has no fever or chills. 03/06: Patient underwent computed tomography scan of the right hip as well as a pelvic area did not show any evidence of acute fracture just mild osteophytosis, she continues to have weakness in the right lower extremity, she is not able to lift her leg up, she was seen in consultation by orthopedic surgery was recommended that it may be related to nerve injury, physical therapy and occupational therapy is to continue the patient on the patient may require extended care facility for rehabilitation for the next 2-4 weeks. 03/07:patient is laying down in bed she is complaining of increased pain in the right groin, she is asking for a stronger pain medication besides Tylenol she will be started on tramadol 50 mg orally 3 times every day as needed, she will be maintained on Tylenol, she will be seen in consultation by physical therapy again, we are awaiting the prior authorization for her to go to extended care facility for physical therapy rehabilitation. 03/08: patient is doing a lot better today her pain is down she is tolerating tramadol very well, she could use Tylenol, she is awaiting for the prior authorization for her to go to extended care facility she would be transferred later on this afternoon to [facility]. discharge diagnoses: 1. Multiple falls with generalized debilitation and increasing weakness of unclear etiology, with right sided hip pain due to possible right femoral nerve injury. 2. Hypertension. 3. History of coronary artery disease with stent placement. 4. AAA status post repair. 5. GI prophylaxis. 6. DVT prophylaxis. 7. COVID-19 testing negative 8. High risk of falling, PT evaluation, likely will require ECF placement. Patient Condition at Discharge: Fair Plan - Discharge Summary Discharge Rx Participant: No New Discharge Prescriptions: No Action Metoprolol Tartrate [Lopressor] 12.5 mg PO BID Lisinopril-Hctz 20-12.5 mg [Zestoretic 20-12.5] 1 tab PO DAILY Clopidogrel [Plavix] 75 mg PO DAILY Lovastatin [Mevacor] 40 mg PO HS Acetaminophen [Tylenol Extra Strength] 500 mg PO BID Multivitamins, Thera [Multivitamin (formulary)] 1 tab PO DAILY Discharge Medication List Acetaminophen [Tylenol Extra Strength] 500 mg PO BID 03/03/20 [History] Clopidogrel [Plavix] 75 mg PO DAILY 03/03/20 [History] Lisinopril-Hctz 20-12.5 mg [Zestoretic 20-12.5] 1 tab PO DAILY 03/03/20 [History] Lovastatin [Mevacor] 40 mg PO HS 03/03/20 [History] Metoprolol Tartrate [Lopressor] 12.5 mg PO BID 03/03/20 [History] Multivitamins, Thera [Multivitamin (formulary)] 1 tab PO DAILY 03/03/20 [History] Follow up Appointment(s)/Referral(s): Candie Purvis MD [Primary Care Provider] - 1-2 days
[2020-03-08] MEDS: METOPROLOL TARTRATE 12.5 MG TAB PO SCH (09:11)
[2020-03-08] MEDS: PANTOPRAZOLE 40 MG TABLET PO SCH (09:11)
[2020-03-08] MEDS: CLOPIDOGREL 75 MG TAB PO SCH (09:11)
[2020-03-08] MEDS: MULTIVITAMINS, THERA 1 EACH TAB PO SCH (09:12)
[2020-03-08] MEDS: LISINOPRIL-HCTZ 20-12.5 MG 1 EACH TAB PO SCH (09:13)
[2020-03-08] MEDS: HEPARIN SODIUM,PORCINE 5,000 UNIT/ML 1 ML VIAL SQ SCH (09:13)
[2020-03-08] MEDS: traMADol 50 MG TAB PO SCH (09:14)
[2020-03-08] MEDS: ACETAMINOPHEN TAB 500 MG TAB PO PRN (12:32)
[2020-03-08 13:05] VITALS: BP 100/51; PULSE 65; TEMP 98.4
--- NOTE | 2020-03-10 15:54 | CDI ---
Documentation Clarification Form Date: 03/10/20 From: Jennifer Willingham Phone: If you have a question about this query, please contact Yocasta Son, Director Of Corporate Real Estate at [phone] between 8am and 5pm. Admit Date: 03/05/20 Discharge Date:03/08/20 Patient Name: Payton Anderson Visit Number: [id number] ATTENTION: The Clinical Documentation Specialists (CDI) and [facility] Coding Staff appreciate your assistance in clarifying documentation. Please respond to the clarification below the line at the bottom and electronically sign. The CDI & [facility] Coding staff will review the response and follow-up if needed. Please note: Queries are made part of the Legal Health Record. If you have any questions, please contact the author of this message via ITS. Dear Dr. Purvis Acute confusional state was documented in the ED note. History/Risk Factors: Dehydration, generalized debilitation, increasing weakness, CAD Clinical Indicators: confusion Labs: BUN 25, glucose 111; urine - ketones trace, blood trace, bacteria rare, mucus rare X Ray: Chest; pulmonary mild fibrotic changes Treatment: NS at 80 mls/hr In your professional opinion, please clarify the etiology of the Altered Mental Status, if known. 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 MTDD
== END 2020-03-08 13:32 | disposition home or self-care (01) ==
LOC: EC 16:36 → 5NMEDONC 23:29 → INTOOBSV 03-05 14:37 → OBSVTOIN 03-05 14:37 → UNDODISIN 03-08 13:32
PROVIDERS: ADMIT Internal Medicine; ATTEND Internal Medicine
DX: R53.81 Other malaise (principal); R41.0 Disorientation, unspecified; R62.7 Adult failure to thrive; R42 Dizziness and giddiness; R29.6 Repeated falls; E86.0 Dehydration; G89.29 Other chronic pain; R10.31 Right lower quadrant pain; R05 Cough; M79.89 Other specified soft tissue disorders; I10 Essential (primary) hypertension; I25.10 Atherosclerotic heart disease of native coronary artery without angina pectoris; I71.4 Abdominal aortic aneurysm, without rupture; E78.5 Hyperlipidemia, unspecified; I45.2 Bifascicular block; M71.21 Synovial cyst of popliteal space [Baker], right knee; J84.10 Pulmonary fibrosis, unspecified; R53.1 Weakness; M16.11 Unilateral primary osteoarthritis, right hip; Z03.818 Encounter for observation for suspected exposure to other biological agents ruled out; Z79.02 Long term (current) use of antithrombotics/antiplatelets; Z79.899 Other long term (current) drug therapy; Z95.5 Presence of coronary angioplasty implant and graft; Z98.890 Other specified postprocedural states; Z95.2 Presence of prosthetic heart valve; M51.9 Unspecified thoracic, thoracolumbar and lumbosacral intervertebral disc disorder; Z98.41 Cataract extraction status, right eye; Z98.42 Cataract extraction status, left eye; Z96.1 Presence of intraocular lens; Z87.891 Personal history of nicotine dependence; Z81.8 Family history of other mental and behavioral disorders
CPT/HCPCS: 96361 ×4; 96372 ×6; 96360; 99285; 36415; 93005; 97162; 97166; 80053 ×3; 83735; 84484; 85025 ×3; 81001; 73502; 71046; 93971; 72192; 73700; G0378 ×6; U0003; J1644 ×5

== ENCOUNTER 2020-04-27 16:55 | Observation (INO) | payer MEDICARE ==
--- NOTE | 2020-04-27 17:06 | ED ---
SOB HPI - General Chief Complaint: Shortness of Breath Stated Complaint: ABD labs/chest pain Time Seen by Provider: 04/27/20 17:00 Source: patient, EMS, RN notes reviewed Mode of arrival: EMS Limitations: no limitations - History of Present Illness Initial Comments: This is a 85-year-old female history of atrial fibrillation who presents by EMS with complaints of shortness of breath and chest pain. Started having sugars breath last evening at a brief episode of retrosternal chest pressure 2/10 severity which is gone now but she still short of breath. Had lab work done at the [facility] today showed a potassium that was low and a d-dimer of 4.78. MD Complaint: shortness of breath, chest pain - Related Data Home Medications Medication Instructions Recorded Confirmed Acetaminophen [Tylenol Extra 500 mg PO BID@0800,1700 03/03/20 04/27/20 Strength] Clopidogrel [Plavix] 75 mg PO DAILY@0800 03/03/20 04/27/20 Lisinopril-Hctz 20-12.5 mg 1 tab PO DAILY@0800 03/03/20 04/27/20 [Zestoretic 20-12.5] Lovastatin [Mevacor] 40 mg PO HS@1700 03/03/20 04/27/20 Metoprolol Tartrate [Lopressor] 25 mg PO BID@0800,1700 03/03/20 04/27/20 Multivitamins, Thera [Multivitamin 1 tab PO HS@1700 03/03/20 04/27/20 (formulary)] Benzonatate [Tessalon Perles] 200 mg PO TID@0800,1200,1700 04/27/20 04/27/20 Lactose-Reduced Food [Ensure Plus] 120 ml PO TID@0800,1200,1700 04/27/20 0 04/27/20 Magnesium Hydroxide [Milk of 7,200 mg PO Q48H PRN 04/27/20 04/27/20 Magnesia Concentrate] Na Phos,M-B/Na Phos,Di-Ba [Fleet 133 ml RECTAL DAILY PRN 04/27/20 04/27/20 Adult] Potassium Chloride ER [K-Dur 20] 40 meq PO ONCE 04/27/20 04/27/20 bisacodyL [Bisacodyl] 10 mg RECTAL DAILY PRN 04/27/20 04/27/20 polyethylene glycoL 3350 [Miralax] 17 gm PO HS@1700 04/27/20 04/27/20 Previous Rx's Medication Instructions Recorded Acetaminophen Tab [Tylenol] 500 mg PO Q4H PRN tab 03/08/20 Allergies Allergy/AdvReac Type Severity Reaction Status Date / Time No Known Allergies Allergy Verified 04/27/20 18:33 Review of Systems ROS Statement: Those systems with pertinent positive or pertinent negative responses have been documented in the HPI. ROS Other: All systems not noted in ROS Statement are negative. Past Medical History Past Medical History: Hyperlipidemia, Hypertension, Vascular Disorder Additional Past Medical History / Comment(s): Pt states she has been having bal ance issues and falls lately, DDD History of Any Multi-Drug Resistant Organisms: None Reported Past Surgical History: Cardiac Valve Replacement, Heart Catheterization With Stent Additional Past Surgical History / Comment(s): Cardiac valve replacement, bilateral cataracts removed with lens implants. Past Anesthesia/Blood Transfusion Reactions: No Reported Reaction Date of Last Stent Placement:: 2017 Past Psychological History: No Psychological Hx Reported Smoking Status: Never smoker Past Alcohol Use History: None Reported Past Drug Use History: None Reported - Past Family History Father Family Medical History: No Reported History Additional Family Medical History / Comment(s): Father at age 88 from old age. Mother Family Medical History: No Reported History Additional Family Medical History / Comment(s): Mother at age 80 from old age. Brother(s) Additional Family Medical History / Comment(s): Patient had 2 brothers both have passed. Patient does not know their medical history. Sister(s) Additional Family Medical History / Comment(s): Patient has one sister that from Alzheimer's. Patient has 2 sons with no major medical problems. General Exam - General Exam Comments Initial Comments: This is a well-developed well-nourished awake alert oriented 3 female Limitations: no limitations General appearance: alert, in no apparent distress Head exam: Present: atraumatic, normocephalic, normal inspection Eye exam: Present: normal appearance, PERRL, EOMI. Absent: scleral icterus, conjunctival injection, periorbital swelling ENT exam: Present: normal exam, mucous membranes moist Neck exam: Present: normal inspection, full ROM, other (No stridor JVD or bruits). Absent: tenderness, meningismus, lymphadenopathy Respiratory exam: Present: decreased breath sounds. Absent: respiratory distress, wheezes, rales, rhonchi, stridor Cardiovascular Exam: Present: irregular rhythm. Absent: systolic murmur, diastolic murmur, rubs, gallop, clicks GI/Abdominal exam: Present: soft, normal bowel sounds. Absent: distended, tenderness, guarding, rebound, rigid Extremities exam: Present: normal inspection, full ROM, normal capillary refill. Absent: tenderness, pedal edema, joint swelling, calf tenderness Back exam: Present: normal inspection Neurological exam: Present: alert, oriented X3, CN II-XII intact Psychiatric exam: Present: normal affect, normal mood Skin exam: Present: warm, dry, intact, normal color. Absent: rash Course Vital Signs 04/27/20 04/27/20 04/27/20 16:56 16:59 17:42 Temperature 98.8 F Pulse Rate 60 73 Respiratory 20 20 18 Rate Blood Pressure 147/101 156/85 O2 Sat by Pulse 98 100 Oximetry 04/27/20 04/27/20 04/27/20 18:28 19:00 19:20 Temperature 98.4 F Pulse Rate 53 L 55 L Respiratory 16 16 Rate Blood Pressure 112/71 151/76 O2 Sat by Pulse 98 98 Oximetry Medical Decision Making - Medical Decision Making Discuss findings with Dr. Purvis and with the patient due to the chest pain. Patient be admitted for evaluation of chest pain. - Lab Data Result diagrams: 04/27/20 17:21 04/27/20 17:21 Lab Results 04/27/20 04/27/20 04/27/20 Range/Units 17:21 17:21 17:21 WBC 6.9 (3.8-10.6) k/uL RBC 4.12 (3.80-5.40) m/uL Hgb 12.6 (11.4-16.0) gm/dL Hct 37.2 (34.0-46.0) % MCV 90.3 (80.0-100.0) fL MCH 30.6 (25.0-35.0) pg MCHC 33.9 (31.0-37.0) g/dL RDW 13.3 (11.5-15.5) % Plt Count 182 (150-450) k/uL Neutrophils % 73 % Lymphocytes % 17 % Monocytes % 7 % Eosinophils % 2 % Basophils % 0 % Neutrophils # 5.0 (1.3-7.7) k/uL Lymphocytes # 1.1 (1.0-4.8) k/uL Monocytes # 0.5 (0-1.0) k/uL Eosinophils # 0.2 (0-0.7) k/uL Basophils # 0.0 (0-0.2) k/uL PT 10.3 (9.0-12.0) sec INR 1.0 (<1.2) APTT 23.3 (22.0-30.0) sec D-Dimer 4.46 H (<0.60) mg/L FEU Sodium 139 (137-145) mmol/L Potassium 3.2 L (3.5-5.1) mmol/L Chloride 104 (98-107) mmol/L Carbon Dioxide 30 (22-30) mmol/L Anion Gap 5 mmol/L BUN 22 H (7-17) mg/dL Creatinine 0.76 (0.52-1.04) mg/dL Est GFR (CKD-EPI)AfAm 82 (>60 ml/min/1.73 sqM) Est GFR (CKD-EPI)NonAf 71 (>60 ml/min/1.73 sqM) Glucose 95 (74-99) mg/dL Plasma Lactic Acid Jose (0.7-2.0) mmol/L Calcium 8.9 (8.4-10.2) mg/dL Magnesium 2.3 (1.6-2.3) mg/dL Total Bilirubin 0.5 (0.2-1.3) mg/dL AST 48 H (14-36) U/L ALT 72 H (4-34) U/L Alkaline Phosphatase 157 H (38-126) U/L Creatine Kinase 30 (30-135) U/L Troponin I (0.000-0.034) ng/mL NT-Pro-B Natriuret Pep pg/mL Total Protein 5.9 L (6.3-8.2) g/dL Albumin 3.6 (3.5-5.0) g/dL 04/27/20 04/27/20 04/27/20 Range/Units 17:21 17:21 17:21 WBC (3.8-10.6) k/uL RBC (3.80-5.40) m/uL Hgb (11.4-16.0) gm/dL Hct (34.0-46.0) % MCV (80.0-100.0) fL MCH (25.0-35.0) pg MCHC (31.0-37.0) g/dL RDW (11.5-15.5) % Plt Count (150-450) k/uL Neutrophils % % Lymphocytes % % Monocytes % % Eosinophils % % Basophils % % Neutrophils # (1.3-7.7) k/uL Lymphocytes # (1.0-4.8) k/uL Monocytes # (0-1.0) k/uL Eosinophils # (0-0.7) k/uL Basophils # (0-0.2) k/uL PT (9.0-12.0) sec INR (<1.2) APTT (22.0-30.0) sec D-Dimer (<0.60) mg/L FEU Sodium (137-145) mmol/L Potassium (3.5-5.1) mmol/L Chloride (98-107) mmol/L Carbon Dioxide (22-30) mmol/L Anion Gap mmol/L BUN (7-17) mg/dL Creatinine (0.52-1.04) mg/dL Est GFR (CKD-EPI)AfAm (>60 ml/min/1.73 sqM) Est GFR (CKD-EPI)NonAf (>60 ml/min/1.73 sqM) Glucose (74-99) mg/dL Plasma Lactic Acid Jose 0.9 (0.7-2.0) mmol/L Calcium (8.4-10.2) mg/dL Magnesium (1.6-2.3) mg/dL Total Bilirubin (0.2-1.3) mg/dL AST (14-36) U/L ALT (4-34) U/L Alkaline Phosphatase (38-126) U/L Creatine Kinase (30-135) U/L Troponin I <0.012 (0.000-0.034) ng/mL NT-Pro-B Natriuret Pep 1140 pg/mL Total Protein (6.3-8.2) g/dL Albumin (3.5-5.0) g/dL - EKG Data -: EKG Interpreted by Me (Undetermined rhythm likely. Rate 82 QRS 150 QT since QTC 446/521 right bun) - Radiology Data Radiology results: report reviewed (We reviewed no definite acute findings), image reviewed Disposition Clinical Impression: Chest pain, Elevated d-dimer Disposition: ADMITTED IP TO THIS [facility] Condition: Fair Referrals: Candie Purvis MD [Primary Care Provider] - 1-2 days
[2020-04-27 17:37] LABS: Basophils % (A) 0 %; Eosinophils # (A) 0.2 k/uL (0-0.7); Eosinophils % (A) 2 %; HCT 37.2 % (34.0-46.0); HGB 12.6 gm/dL (11.4-16.0); Lymphocytes # (A) 1.1 k/uL (1.0-4.8); Lymphocytes % (A) 17 %; MCH 30.6 pg (25.0-35.0); MCHC 33.9 g/dL (31.0-37.0); MCV 90.3 fL (80.0-100.0); Mean Platelet Volume 7.3; Monocytes # (A) 0.5 k/uL (0-1.0); Monocytes % (A) 7 %; Neutrophils % (A) 73 %; Platelet Count 182 k/uL (150-450); RBC 4.12 m/uL (3.80-5.40); RDW 13.3 % (11.5-15.5); WBC 6.9 k/uL (3.8-10.6)
[2020-04-27 17:47] LABS: Albumin 3.6 g/dL (3.5-5.0); Calcium 8.9 mg/dL (8.4-10.2); Magnesium 2.3 mg/dL (1.6-2.3); Potassium 3.2 mmol/L (3.5-5.1); Total Bilirubin 0.5 mg/dL (0.2-1.3); Total Protein 5.9 g/dL (6.3-8.2)
[2020-04-27 17:51] LABS: Partial Thromboplastin Time 23.3 sec (22.0-30.0); Prothrombin Time 10.3 sec (9.0-12.0)
[2020-04-27 18:01] LABS: D-Dimer 4.46 mg/L FEU (<0.60)
--- NOTE | 2020-04-27 18:08 | XR ---
EXAMINATION TYPE: XR chest 2V DATE OF EXAM: 04/27/2020 COMPARISON: 03/03/2020 HISTORY: Difficulty breathing TECHNIQUE: FINDINGS: There is no heart failure nor confluent pneumonic infiltrate. Heart size is normal. Thoraci c aorta is atheromatous. There is slight coarsening of interstitial markings. There is aortic valve s urgery. Bony thorax is intact. There is some osteopenia. IMPRESSION: No active cardiopulmonary disease. No change. Atheromatous aorta.
--- NOTE | 2020-04-27 18:33 | CT ---
EXAMINATION TYPE: CT angio chest DATE OF EXAM: 04/27/2020 COMPARISON: None HISTORY: Elevated d-dimer and bilateral leg swelling. CT DLP: 498.8 mGycm Automated exposure control for dose reduction was used. CONTRAST: Performed with IV Contrast, patient injected with 82ml mL of Isovue 370. Multiple axial sections were obtained from the thoracic inlet to the diaphragm with IV contrast and 3 -D post processed images. Thoracic aorta is atheromatous. There are large pulmonary arteries. I see no filling defect in the pu lmonary arteries. There is no mediastinal adenopathy. There are no hilar masses. There is aortic valv e surgery noted. There is mild pleural thickening at the lung bases. There is some mild atelectasis a nd scarring at the lung bases. There is no suspicious pulmonary mass. Thoracic aorta is atheromatous. There is some dense calcification of the right anterior and left posterior pericardium. . Thoracic s pine is intact. Sternum is intact. IMPRESSION: No evidence of pulmonary embolism. Atherosclerotic vascular disease. Mild scarring and atelectasis at the lung bases.
[2020-04-27] MEDS ORDERED: NITROGLYCERIN SL TABS 0.4 MG TAB SUBLINGUAL PRN (19:48)
[2020-04-27] MEDS ORDERED: ACETAMINOPHEN TAB 500 MG TAB PO PRN (19:51)
[2020-04-27] MEDS ORDERED: MAGNESIUM HYDROXIDE 2,400 MG/10 ML CUP PO PRN (19:51)
[2020-04-27] MEDS ORDERED: NA PHOS,M-B/NA PHOS,DI-BA 133 ML ENEMA RECTAL PRN (19:51)
[2020-04-27] MEDS ORDERED: bisacodyL 10 MG SUPP RECTAL PRN (19:51)
[2020-04-28 06:59] LABS: Basophils % (A) 1 %; Eosinophils # (A) 0.2 k/uL (0-0.7); Eosinophils % (A) 2 %; HCT 34.9 % (34.0-46.0); HGB 11.5 gm/dL (11.4-16.0); Lymphocytes # (A) 1.1 k/uL (1.0-4.8); Lymphocytes % (A) 18 %; MCH 30.1 pg (25.0-35.0); MCV 91.4 fL (80.0-100.0); Mean Platelet Volume 7.2; Monocytes # (A) 0.4 k/uL (0-1.0); Monocytes % (A) 6 %; Neutrophils # (A) 4.6 k/uL (1.3-7.7); Neutrophils % (A) 72 %; Platelet Count 156 k/uL (150-450); RBC 3.82 m/uL (3.80-5.40); RDW 13.3 % (11.5-15.5); WBC 6.4 k/uL (3.8-10.6)
[2020-04-28 07:15] LABS: Albumin 3.4 g/dL (3.5-5.0); Calcium 8.8 mg/dL (8.4-10.2); Potassium 3.6 mmol/L (3.5-5.1); Total Bilirubin 0.8 mg/dL (0.2-1.3); Total Protein 5.8 g/dL (6.3-8.2)
[2020-04-28] MEDS ORDERED: PANTOPRAZOLE 40 MG TABLET PO SCH (07:30)
[2020-04-28] MEDS ORDERED: LISINOPRIL-HCTZ 20-12.5 MG 1 EACH TAB PO SCH (08:00)
[2020-04-28] MEDS ORDERED: CLOPIDOGREL 75 MG TAB PO SCH (08:00)
[2020-04-28] MEDS ORDERED: METOPROLOL TARTRATE 25 MG TAB PO SCH (08:00)
[2020-04-28] MEDS ORDERED: BENZONATATE 100 MG CAP PO SCH (08:00)
[2020-04-28] MEDS ORDERED: ACETAMINOPHEN TAB 500 MG TAB PO SCH (08:00)
[2020-04-28] MEDS ORDERED: NON FORMULARY DRUG (Lactose-Reduced Food [Ensure Plus] 120 ML) PO SCH (08:00)
[2020-04-28 08:36] VITALS: BP 168/79; PULSE 58; RESP 18; TEMP 97.9
[2020-04-28] MEDS ORDERED: ASPIRIN 325 MG TAB PO SCH (09:00)
[2020-04-28] MEDS ORDERED: HEPARIN SODIUM,PORCINE 5,000 UNIT/ML 1 ML VIAL SQ SCH (09:00)
[2020-04-28] MEDS ORDERED: AMINOPHYLLINE 500 MG/20 ML VIAL IV PRN (10:10)
[2020-04-28] MEDS ORDERED: CAFFEINE CITRATE 60 MG/3 ML VIAL IV PRN (10:10)
[2020-04-28] MEDS ORDERED: REGADENOSON 0.4 MG/5 ML SYRINGE IV ONE (10:30)
--- NOTE | 2020-04-28 11:12 | ECHOF ---
Referral Reason:chest pain MEASUREMENTS -------- HEIGHT: 154.9 cm WEIGHT: 60.8 kg BP: 168/79 RVIDd: 2.2 cm (< 3.3) IVSd: 1.3 cm (0.6 - 1.1) LVIDd: 4.0 cm (3.9 - 5.3) LVPWd: 1.5 cm (0.6 - 1.1) IVSs: 1.6 cm LVIDs: 1.8 cm LVPWs: 1.6 cm LAESV Index (A-L): 43.93 ml/m Ao Diam: 3.1 cm (2.0 - 3.7) AV Cusp: 1.2 cm (1.5 - 2.6) LA Diam: 3.0 cm (2.7 - 3.8) MV EXCURSION: 14.577 mm (> 18.000) MV EF SLOPE: 45 mm/s (70 - 150) EPSS: 0.8 cm MV E Farzad: 1.26 m/s MV DecT: 246 ms MV A Farzad: 1.11 m/s MV E/A Ratio: 1.13 AV maxP.61 mmHg AV meanP.83 mmHg AR PHT: 637 ms RAP: 5.00 mmHg RVSP: 28.58 mmHg FINDINGS -------- This was a technically good study. The left ventricular size is normal. There is moderate concentric left ventricular hypertrophy. O verall left ventricular systolic function is normal with, an EF between 55 - 60 %. Increased LAP Gr chanelle 2 Diastolic Dysfunction. The right ventricle is normal in size. LA is severely dilated >40 ml/m2 The right atrial size is normal. Interatrial and interventricular septum intact. Aortic valve is trileaflet and is mildly thickened. There is mild aortic regurgitation. There is mild aortic stenosis present. Peak/mean gradient across the Aortic Valve is 15.61mmHg / 7.83mmHg. The mitral valve is normal. The mitral valve leaflets are moderately thickened. Moderate mitral a nnular calcification present. Mild mitral regurgitation is present. The tricuspid valve appears structurally normal. Mild tricuspid regurgitation present. Right vent ricular systolic pressure is normal at < 35 mmHg. There is no pulmonic regurgitation present. The aortic root size is normal. Normal inferior vena cava with normal inspiratory collapse consistent with estimated right atrial pre ssure of 5 mmHg. There is no pericardial effusion. CONCLUSIONS -------- 1. The left ventricular size is normal. 2. There is moderate concentric left ventricular hypertrophy. 3. Overall left ventricular systolic function is normal with, an EF between 55 - 60 %. 4. Increased LAP Grade 2 Diastolic Dysfunction. 5. LA is severely dilated >40 ml/m2 6. Aortic valve is trileaflet and is mildly thickened. 7. There is mild aortic regurgitation. 8. There is mild aortic stenosis present. 9. Peak/mean gradient across the Aortic Valve is 15.61mmHg / 7.83mmHg. 10. The mitral valve is normal. 11. The mitral valve leaflets are moderately thickened. 12. Moderate mitral annular calcification present. 13. Mild mitral regurgitation is present. 14. Mild tricuspid regurgitation present. [employer]: Yoly Hernandez RDCS
--- NOTE | 2020-04-28 11:51 | P.CRDCN ---
History of Present Illness Consult date: 04/28/20 Reason for Consult (text): Chest pain History of present illness: HISTORY OF PRESENTING ILLNESS This is a pleasant 85-year-old female who presents for chest pain. Patient is a poor historian and denies any significant past medical history. The medical record has numerous diagnoses including atrial fibrillation, valve replacement, coronary artery disease status post stent and AAA repair however patient denies any these. She states she lives at home with her son. She states she was at home and then had an episode of chest pain that woke her from her sleep. She states that woke her from her sleep and was not associated with any positioning or movement. She believes she received something in the EMS with some improvement in her pain which has now resolved. She denies ever seeing a hydrology professor. She has not believe she has had a history of AAA repair and has no surgical scar of her abdomen. She presented to the emergency department and had workup including a chest x-ray which did reveal a supra-annular aortic valve consistent with evolut TAVR, and CTA was performed which showed no PE and atherosclerotic heart disease. She had workup including troponins which were negative 3 and a BNP of 1140. DIAGNOSTICS EKG reveals sinus rhythm with PACs, right bundle branch block, left anterior fascicular block, nonspecific ST-T wave abnormalities. Chest xray no acute process, TAVR valve in place. Laboratory reviewed, troponin negative 3, creatinine normal, BNP 1140. Current cardiac medications include aspirin 325 mg daily, Lipitor 10 mg daily, Plavix 75 mg daily, lisinopril/hydrochlorothiazide 20/12.5 mg daily, Lopressor 2 5 mg twice a day. REVIEW OF SYSTEMS At the time of my exam: CONSTITUTIONAL: Denies fever or chills. CARDIOVASCULAR: +chest pain, no shortness of breath, orthopnea, PND or palpitations. RESPIRATORY: Denies cough. GASTROINTESTINAL: Denies abdominal pain, diarrhea, constipation, nausea or vomiting. MUSCULOSKELETAL: Denies myalgias. NEUROLOGIC: Denies numbness, tingling or weakness. ENDOCRINE: Denies fatigue, weight change, polydipsia or polyurina. GENITOURINARY: Denies burning, hematuria or urgency with micturation. HEMATOLOGIC: Denies history of anemia or bleeding. PHYSICAL EXAMINATION Blood pressure 126/57 heart rate 57 afebrile and maintaining oxygen saturation on 2 L nasal cannula. CONSTITUTIONAL: No apparent distress, alert and oriented times person, place and 2020 however poor historian and cannot recall much of her history HEENT: Head is normocephalic. Pupils are equal, round. Sclerae anicteric. Mucous membranes of the mouth are moist. No JVD. No carotid bruit. CHEST EXAMINATION: Lungs are clear to auscultation. No chest wall tenderness is noted on palpation or with deep breathing. HEART EXAMINATION: Regular rate and rhythm. S1, S2 heard. +2/6 systolic murmurs, gallops or rub. ABDOMEN: Soft, nontender. Positive bowel sounds. EXTREMITIES: 2+ peripheral pulses, no lower extremity edema and no calf tenderness. NEUROLOGIC EXAMINATION: Patient is awake, alert and oriented to person, place and 2020, poor recall of much of her medical history. ASSESSMENT 1. Atypical chest pain, troponin negative 3 2. 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 Essential hypertension, currently controlled 4. Poor historian with mixed reports of coronary artery disease, AAA repair however no surgical scar does support surgical AAA repair. PLAN Patient presented with one episode of atypical chest pain. Troponins are negative 3 and EKG with right bundle branch block and nonspecific. Echo was performed this morning which shows normal ejection fraction, no wall motion abnormalities and appears to be normally functioning TAVR valve. We will attem pt to obtain further information on patient's history as she does not recall ever seeing a hydrology professor however has clearly had cardiac workup previously. We will check nuclear stress test. Continue aspirin and Plavix, as these were home medications and they have been post TAVR or post PCI and she appears to be tolerating these well. If nuclear stress test is normal, patient may be discharged from a cardiac standpoint. Past Medical History Past Medical History: Hyperlipidemia, Hypertension, Vascular Disorder Additional Past Medical History / Comment(s): Pt states she has been having balance issues and falls lately, DDD History of Any Multi-Drug Resistant Organisms: None Reported Past Surgical History: Cardiac Valve Replacement, Heart Catheterization With Stent Additional Past Surgical History / Comment(s): Cardiac valve replacement, bilateral cataracts removed with lens implants. Past Anesthesia/Blood Transfusion Reactions: No Reported Reaction Date of Last Stent Placement:: 2017 Past Psychological History: No Psychological Hx Reported Additional Psychological History / Comment(s): Pt resides with her son. She ambulates with a walker. She has been having falls. She performs her own ADLs. She manages her own medications. She moved to the from [place] in 1963. Smoking Status: Former smoker Past Alcohol Use History: None Reported Additional Past Alcohol Use History / Comment(s): Patient is a lifelong nonsmoker, no alcohol abuse. Patient lives at home with her son, uses walker for ambulation. Past Drug Use History: None Reported - Past Family History Father Family Medical History: No Reported History Additional Family Medical History / Comment(s): Father at age 88 from old age. Mother Family Medical History: No Reported History Additional Family Medical History / Comment(s): Mother at age 80 from old age. Brother(s) Additional Family Medical History / Comment(s): Patient had 2 brothers both have passed. Patient does not know their medical history. Sister(s) Additional Family Medical History / Comment(s): Patient has one sister that from Alzheimer's. Patient has 2 sons with no major medical problems. Medications and Allergies Home Medications Medication Instructions Recorded Confirmed Type Acetaminophen [Tylenol Extra 500 mg PO BID@0800,1700 03/03/20 04/27/20 History Strength] Clopidogrel [Plavix] 75 mg PO DAILY@0800 03/03/20 04/27/20 History Lisinopril-Hctz 20-12.5 mg 1 tab PO DAILY@0800 03/03/20 04/27/20 History [Zestoretic 20-12.5] Lovastatin [Mevacor] 40 mg PO HS@1700 03/03/20 04/27/20 History Metoprolol Tartrate [Lopressor] 25 mg PO BID@0800,1700 03/03/20 04/27/20 History Multivitamins, Thera [Multivitamin 1 tab PO HS@1700 03/03/20 04/27/20 History (formulary)] Acetaminophen Tab [Tylenol] 500 mg PO Q4H PRN tab 03/08/20 04/27/20 Rx Benzonatate [Tessalon Perles] 200 mg PO TID@0800,1200,1700 04/27/20 04/27/20 History Lactose-Reduced Food [Ensure Plus] 120 ml PO TID@0800,1200,1700 04/27/20 04/27/20 History Magnesium Hydroxide [Milk of 7,200 mg PO Q48H PRN 04/27/20 04/27/20 History Magnesia Concentrate] Na Phos,M-B/Na Phos,Di-Ba [Fleet 133 ml RECTAL DAILY PRN 04/27/20 04/27/20 History Adult] Potassium Chloride ER [K-Dur 20] 40 meq PO ONCE 04/27/20 04/27/20 History bisacodyL [Bisacodyl] 10 mg RECTAL DAILY PRN 04/27/20 04/27/20 History polyethylene glycoL 3350 [Miralax] 17 gm PO HS@1700 04/27/20 04/27/20 History Allergies Allergy/AdvReac Type Severity Reaction Status Date / Time No Known Allergies Allergy Verified 04/27/20 18:33 Physical Exam Vitals: Vital Signs Temp Pulse Pulse Resp BP BP Pulse Ox 04/28/20 08:00 97.9 F 58 L 18 168/79 95 04/28/20 03:40 97.6 F 57 L 16 126/57 96 04/28/20 00:00 97.6 F 56 L 17 137/74 97 04/27/20 20:59 97.6 F 55 L 16 177/81 96 04/27/20 20:33 98.5 F 66 16 148/76 97 04/27/20 19:20 98.4 F 04/27/20 19:00 55 L 16 151/76 98 04/27/20 18:28 53 L 16 112/71 98 04/27/20 17:42 73 18 156/85 100 04/27/20 16:59 20 04/27/20 16:56 98.8 F 60 20 147/101 98 Intake and Output 04/27/20 04/28/20 04/28/20 22:59 06:59 14:59 Other: # Voids 1 1 2 Weight 63.503 kg 61.2 kg Results 04/28/20 06:32 04/28/20 06:32 Cardiac Enzymes 04/27/20 04/27/20 04/27/20 Range/Units 17:21 17:21 20:29 AST 48 H (14-36) U/L Troponin I <0.012 0.012 (0.000-0.034) ng/mL 04/27/20 04/28/20 Range/Units 23:34 06:32 AST 38 H (14-36) U/L Troponin I <0.012 (0.000-0.034) ng/mL Coagulation 04/27/20 Range/Units 17:21 PT 10.3 (9.0-12.0) sec APTT 23.3 (22.0-30.0) sec Lipids 04/28/20 Range/Units 06:32 Triglycerides 121 (<150) mg/dL Cholesterol 179 (<200) mg/dL HDL Cholesterol 54 (40-60) mg/dL CBC 04/27/20 04/28/20 Range/Units 17:21 06:32 WBC 6.9 6.4 (3.8-10.6) k/uL RBC 4.12 3.82 (3.80-5.40) m/uL Hgb 12.6 11.5 (11.4-16.0) gm/dL Hct 37.2 34.9 (34.0-46.0) % Plt Count 182 156 (150-450) k/uL Comprehensive Metabolic Panel 04/27/20 04/28/20 Range/Units 17:21 06:32 Sodium 139 141 (137-145) mmol/L Potassium 3.2 L 3.6 (3.5-5.1) mmol/L Chloride 104 107 (98-107) mmol/L Carbon Dioxide 30 32 H (22-30) mmol/L BUN 22 H 19 H (7-17) mg/dL Creatinine 0.76 0.77 (0.52-1.04) mg/dL Glucose 95 84 (74-99) mg/dL Calcium 8.9 8.8 (8.4-10.2) mg/dL AST 48 H 38 H (14-36) U/L ALT 72 H 62 H (4-34) U/L Alkaline Phosphatase 157 H 135 H (38-126) U/L Total Protein 5.9 L 5.8 L (6.3-8.2) g/dL Albumin 3.6 3.4 L (3.5-5.0) g/dL Current Medications Generic Name Dose Route Start Last Admin Trade Name Freq PRN Reason Stop Dose Admin Acetaminophen 500 mg 04/28/20 08:00 04/28/20 09:07 Tylenol Tab PO 500 mg BID@0800,1700 EVELYN Administration Acetaminophen 500 mg 04/27/20 19:51 Tylenol Tab PO Q4H PRN Pain Aminophylline 100 mg 04/28/20 10:10 Aminophylline IV 04/28/20 23:00 ONCE PRN Patient Response Aspirin 325 mg 04/28/20 09:00 04/28/20 09:07 Aspirin PO 325 mg DAILY [facility] Administration Atorvastatin Calcium 10 mg 04/28/20 17:00 Lipitor PO HS@1700 [facility] Benzonatate 200 mg 04/28/20 08:00 04/28/20 09:08 Tessalon Perles PO 200 mg TID@0800,1200,1700 [facility] Administration Bisacodyl 10 mg 04/27/20 19:51 Dulcolax RECTAL DAILY PRN Constipation Caffeine Citrate 60 mg 04/28/20 10:10 Cafcit Inj IV 04/28/20 23:00 ONCE PRN Patient Response Clopidogrel Bisulfate 75 mg 04/28/20 08:00 04/28/20 09:08 Plavix PO 75 mg DAILY@0800 [facility] Administration Lisinopril/HCTZ 1 each 04/28/20 08:00 Zestoretic 20-12.5 PO DAILY@0800 [facility] Heparin Sodium (Porcine) 5,000 unit 04/28/20 09:00 04/28/20 09:08 Heparin SQ 5,000 unit Q12HR [facility] Administration Magnesium Hydroxide 2,400 mg 04/27/20 19:51 Milk Of Magnesia PO Q48H PRN Constipation Metoprolol Tartrate 25 mg 04/28/20 08:00 04/28/20 09:08 Lopressor PO 25 mg BID@0800,1700 [facility] Administration Multivitamins 1 each 04/28/20 17:00 Theragran PO HS@1700 [facility] Nitroglycerin 0.4 mg 04/27/20 19:48 Nitrostat SUBLINGUAL Q5M PRN Chest Pain Pantoprazole Sodium 40 mg 04/28/20 07:30 04/28/20 04:53 Protonix PO Not Given AC-BRKFST [facility] Polyethylene Glycol 17 gm 04/28/20 17:00 Miralax PO HS@1700 [facility] Sodium Biphosphate/Sodium Phosphate 133 ml 04/27/20 19:51 Fleet Adult RECTAL DAILY PRN Constipation Intake and Output 04/27/20 04/28/20 04/28/20 22:59 06:59 14:59 Other: # Voids 1 1 2 Weight 63.503 kg 61.2 kg 04/28/20 06:32 04/28/20 06:32
--- NOTE | 2020-04-28 13:48 | P.HPIM ---
History of Present Illness H&P Date: 04/28/20 HISTORY AND PHYSICAL AND DISCHARGE SUMMARY: This is an 85-year-old female patient of Dr. Purvis residing at [facility] with past medical history of hypertension, hyperlipidemia, coronary artery disease status post stent, aortic valve replacement, degenerative disc disease. Patient states that she was sitting at the time and developed chest pain was like a band around her chest. She states she stood up and she noticed that her feet were swelling and she called the nurse and told her that she needed to come in the hospital for evaluation. Patient was brought into [facility] emergency [facility] for evaluation. EKG was a sinus rhythm with PACs, right bundle branch block, left anterior fascicular block, nonspecific ST-T wave changes. Chest x-ray showed no acute process. CBC unremarkable. Troponins are negative on 3 draws, BNP 1140. AST 48, ALT 72, when phosphatase 157. Triglycerides 161, cholesterol 179, LDL 101, HDL 54. Patient has been afebrile, heart rate 58, blood pressure 168/79, pulse ox 95% on 2 L nasal cannula. CTA of the chest revealed no evidence of pulmonary embolism. Atherosclerotic vascular disease. Mild scarring and atelectasis at the lung bases. Patient was placed on the cardiac stepdown unit. She has been seen by cardiology and echocardiogram and stress test ordered. Echocardiogram reveals EF of 55-60%, moderate concentric left ventricular hypertrophy, mild aortic regurgitation, mild aortic stenosis, mild mitral regurgitation, mild tricuspid regurgitation. Nuclear stress test results refill fixed apical defect with possible reversible ischemia. Cardiolgy reviewed and advised patient is stable from cardiology standpoint for discharge. At the time of evaluation, patient is chest pain-free. She is complaining of headache from medication. Patient will be discharged back to [facility] today in stable condition. No medication changes. COVID-19 testing negative. Review of Systems Constitutional: Denies chills, Denies chronic pain, Denies fatigue, Denies fev er, Denies lethargy, Denies malaise, Denies weight loss Eyes: denies blurred vision, denies pain Ears, nose, mouth and throat: Denies dysphagia, Denies hoarseness, Denies nasal congestion, Denies nasal discharge, Denies vertigo Cardiovascular: Reports chest pain, Reports leg edema, Denies decreased exercise tolerance, Denies dyspnea on exertion, Denies lightheadedness, Denies orthopnea, Denies palpitations, Denies paroxysmal nocturnal dyspnea, Denies shortness of breath Respiratory: Denies cough, Denies cough with sputum, Denies dyspnea, Denies excessive sputum, Denies hemoptysis, Denies home oxygen, Denies respiratory infections, Denies sleep apnea Gastrointestinal: Denies abdominal pain, Denies bloating, Denies diarrhea, Denies loss of appetite, Denies melena, Denies nausea, Denies vomiting Genitourinary: Denies dysuria, Denies urgency, Denies urinary frequency Menstruation: Reports postmenopausal Musculoskeletal: Denies frequent falls, Denies gait dysfunction, Denies muscle weakness Integumentary: Denies pruritus, Denies rash, Denies wounds Neurological: Denies change in mentation, Denies change in speech, Denies gait dysfunction, Denies numbness, Denies vertigo, Denies weakness Psychiatric: Denies anxiety, Denies depression Endocrine: Denies fatigue, Denies weight change Past Medical History Past Medical History: Hyperlipidemia, Hypertension Additional Past Medical History / Comment(s): Pt states she has been having balance issues and falls lately, DDD History of Any Multi-Drug Resistant Organisms: None Reported Past Surgical History: Cardiac Valve Replacement, Heart Catheterization With Stent Additional Past Surgical History / Comment(s): Cardiac valve replacement, bilateral cataracts removed with lens implants. Past Anesthesia/Blood Transfusion Reactions: No Reported Reaction Date of Last Stent Placement:: 2017 Past Psychological History: No Psychological Hx Reported Additional Psychological History / Comment(s): Pt resides at [facility]. She ambulates with a walker. She has been having falls. She performs her own ADLs. She manages her own medications. She moved to the from [place] in 1963. Smoking Status: Never smoker Past Alcohol Use History: None Reported Additional Past Alcohol Use History / Comment(s): Patient is a lifelong nonsm oker, no alcohol abuse. Patient lives at home with her son, uses walker for ambulation. Past Drug Use History: None Reported - Past Family History Father Family Medical History: No Reported History Additional Family Medical History / Comment(s): Father at age 88 from old age. Mother Family Medical History: No Reported History Additional Family Medical History / Comment(s): Mother at age 80 from old age. Brother(s) Additional Family Medical History / Comment(s): Patient had 2 brothers both have passed. Patient does not know their medical history. Sister(s) Additional Family Medical History / Comment(s): Patient has one sister that from Alzheimer's. Patient has 2 sons with no major medical problems. Medications and Allergies Home Medications Medication Instructions Recorded Confirmed Type Acetaminophen [Tylenol Extra 500 mg PO BID@0800,1700 03/03/20 04/27/20 History Strength] Clopidogrel [Plavix] 75 mg PO DAILY@0800 03/03/20 04/27/20 History Lisinopril-Hctz 20-12.5 mg 1 tab PO DAILY@0800 03/03/20 04/27/20 History [Zestoretic 20-12.5] Lovastatin [Mevacor] 40 mg PO HS@1700 03/03/20 04/27/20 History Metoprolol Tartrate [Lopressor] 25 mg PO BID@0800,1700 03/03/20 04/27/20 History Multivitamins, Thera [Multivitamin 1 tab PO HS@1700 03/03/20 04/27/20 History (formulary)] Acetaminophen Tab [Tylenol] 500 mg PO Q4H PRN tab 03/08/20 04/27/20 Rx Benzonatate [Tessalon Perles] 200 mg PO TID@0800,1200,1700 04/27/20 04/27/20 History Lactose-Reduced Food [Ensure Plus] 120 ml PO TID@0800,1200,1700 04/27/20 04/27/20 History Magnesium Hydroxide [Milk of 7,200 mg PO Q48H PRN 04/27/20 04/27/20 History Magnesia Concentrate] Na Phos,M-B/Na Phos,Di-Ba [Fleet 133 ml RECTAL DAILY PRN 04/27/20 04/27/20 History Adult] Potassium Chloride ER [K-Dur 20] 40 meq PO ONCE 04/27/20 04/27/20 History bisacodyL [Bisacodyl] 10 mg RECTAL DAILY PRN 04/27/20 04/27/20 History polyethylene glycoL 3350 [Miralax] 17 gm PO HS@1700 04/27/20 04/27/20 History Allergies Allergy/AdvReac Type Severity Reaction Status Date / Time No Known Allergies Allergy Verified 04/27/20 18:33 Physical Exam Vitals: Vital Signs Temp Pulse Pulse Resp BP BP Pulse Ox 04/28/20 08:00 97.9 F 58 L 18 168/79 95 04/28/20 03:40 97.6 F 57 L 16 126/57 96 04/28/20 00:00 97.6 F 56 L 17 137/74 97 04/27/20 20:59 97.6 F 55 L 16 177/81 96 04/27/20 20:33 98.5 F 66 16 148/76 97 04/27/20 19:20 98.4 F 04/27/20 19:00 55 L 16 151/76 98 04/27/20 18:28 53 L 16 112/71 98 04/27/20 17:42 73 18 156/85 100 04/27/20 16:59 20 04/27/20 16:56 98.8 F 60 20 147/101 98 Intake and Output 04/27/20 04/28/20 04/28/20 22:59 06:59 14:59 Other: # Voids 1 1 2 Weight 63.503 kg 61.2 kg 61.2 kg Physical Examination Gen: This is an 85-year-old female. Patient is seen in the stress lab. She is resting in a wheelchair and appears to be comfortable. She denies any chest pain at the time of evaluation. HEENT: Head is atraumatic, normocephalic. Pupils equal, round. Sclerae is anicteric. NECK: Supple. No JVD. No lymphadenopathy. No thyromegaly. LUNGS: Clear to auscultation. No wheezes or rhonchi. No intercostal retractions. HEART: Regular rate and rhythm. 2/6 systolic murmur. ABDOMEN: Soft. Bowel sounds are present. No masses. No tenderness. EXTREMITIES: No pedal edema. No calf tenderness. Dorsalis pedis +2 bilaterally. NEUROLOGICAL: Patient is awake, alert and oriented x3. Cranial nerves 2 through 12 are grossly intact. Results CBC & Chem 7: 04/28/20 06:32 04/28/20 06:32 Labs: Abnormal Lab Results - Last 24 Hours (Table) 04/27/20 04/27/20 04/28/20 Range/Units 17:21 17:21 06:32 D-Dimer 4.46 H (<0.60) mg/L FEU Potassium 3.2 L (3.5-5.1) mmol/L Carbon Dioxide 32 H (22-30) mmol/L BUN 22 H 19 H (7-17) mg/dL AST 48 H 38 H (14-36) U/L ALT 72 H 62 H (4-34) U/L Alkaline Phosphatase 157 H 135 H (38-126) U/L Total Protein 5.9 L 5.8 L (6.3-8.2) g/dL Albumin 3.4 L (3.5-5.0) g/dL LDL Cholesterol, Calc 101 H (0-99) mg/dL Thrombosis Risk Factor Assmnt - DVT/VTE Prophylaxis DVT/VTE Prophylaxis: Mechanical Prophylaxis ordered - Choose All That Apply Any of the Below Risk Factors Present?: Yes Each Factor Represents 1 point: Obesity (BMI >25), Swollen legs (current) Other Risk Factors: Yes Each Risk Factor Represents 3 Points: Age 75 years or older Other congenital or acquired thrombophilia - If yes, enter type in comment: No Thrombosis Risk Factor Assessment Total Risk Factor Score: 5 Thrombosis Risk Factor Assessment Level: High Risk Assessment and Plan Plan: 1. Chest pain, resolved with negative troponins. Cardiology consult appreciated. Echocardiogram and stress test as above. 2. Hypertension. Continue Lopressor, lisinopril hydrochlorothiazide. 3. Hyperlipidemia. Continue Lipitor 10 mg at bedtime. 4. History of coronary artery disease status post stent. Continue Plavix, aspirin, Lopressor, statin. 5. History of aortic valve replacement. 6. COVID-19 infection not present. Patient placed as observation status. Discharge plan: Return to [facility] under the care of Dr. Purvis. Impression and plan of care have been directed as dictated by the signing physician. Mariya Avalos nurse practitioner acting as scribe for signing physician.
--- NOTE | 2020-04-28 13:55 | NM ---
EXAMINATION TYPE: NM stress lexiscan cardiolite DATE OF EXAM: 04/28/2020 COMPARISON: NONE HISTORY: Chest pain TECHNIQUE: After the intravenous administration of 10.35 mCi Tc 99m Sestamibi - Cardiolite resting S PECT images acquired 55 minutes post injection. The patient received 0.4mg Lexiscan, 26.1 mCi Tc 99m Sestamibi - Stress images obtained [address] injection FINDINGS: Review of stress and rest SPECT images demonstrates small area of fixed defect involving the apex phillip cardium.. Gated analysis shows normal wall motion with an estimated left ventricular ejection fracti on of 67 %. IMPRESSION: 1. Small fixed defect involving the apex myocardium. Tiny area of stress-induced reversible ischemia not excluded correlate clinically.
--- NOTE | 2020-04-28 16:39 | P.PN ---
Progress Note - Text Progress Note Date: 04/28/20 Reviewed nuclear stress test results with radiology interpretation of fixed apical defect with possible reversible ischemia. On review of images apical perfusion defect appears related to apical thinning with no reversible perfusion defect noted. Do not suspect acute coronary syndrome or angina as source of chest pain. Patient is stable from cardiology standpoint for discharge.
[2020-04-28] MEDS ORDERED: ATORVASTATIN 10 MG TAB PO SCH (17:00)
[2020-04-28] MEDS ORDERED: MULTIVITAMINS, THERA 1 EACH TAB PO SCH (17:00)
[2020-04-28] MEDS ORDERED: polyethylene glycoL 3350 17 GM POWD.PACK PO SCH (17:00)
--- NOTE | 2020-04-29 20:23 | EST ---
EXERCISE STRESS AGE: 85 SEX: Female HT: 60" WT: 134 PROTOCOL: Lexiscan Cardiolite STAGE: DURATION OF EXERCISE: HEART RATE REST: 53 BLOOD PRESSURE REST: 180/88 MAXIMUM HEART RATE ACHIEVED: 68 MAXIMUM BLOOD PRESSURE: 180/88 85% MPHR: 113 100% MPHR: 133 METS: INDICATIONS: Chest pain. CLINICAL INFORMATION: STRESS DATA: Heart rate 53, pressure 180/88 mmHg. Baseline EKG showed sinus mechanism with RBBB. Lexiscan 0.4 mg was given over 15 seconds per protocol. Max heart rate was 68 beats per minute and maximum blood pressure was 180/88 mmHg. Clinically the patient did not have any symptoms and the EKG did not show any significant ST or T-wave abnormalities concerning for ischemia. CONCLUSION: 1. Nondiagnostic electrocardiogram stress testing in response to Lexiscan. 2. Please follow up on the Cardiolite portion on separate report from Radiology Department. MMODL / IJN: [id number] /
== END 2020-04-28 16:33 ==
LOC: EC 16:55 → 3SCARD 19:49
PROVIDERS: ADMIT Internal Medicine; ATTEND Internal Medicine
DX: R07.89 Other chest pain (principal); R06.02 Shortness of breath; R79.1 Abnormal coagulation profile; I10 Essential (primary) hypertension; E78.5 Hyperlipidemia, unspecified; I25.10 Atherosclerotic heart disease of native coronary artery without angina pectoris; M79.89 Other specified soft tissue disorders; I48.91 Unspecified atrial fibrillation; M51.9 Unspecified thoracic, thoracolumbar and lumbosacral intervertebral disc disorder; R29.6 Repeated falls; I49.1 Atrial premature depolarization; I45.2 Bifascicular block; I70.90 Unspecified atherosclerosis; J98.11 Atelectasis; J98.4 Other disorders of lung; I08.3 Combined rheumatic disorders of mitral, aortic and tricuspid valves; R94.39 Abnormal result of other cardiovascular function study; R51 Headache; R26.81 Unsteadiness on feet; E66.9 Obesity, unspecified; Z20.828 Contact with and (suspected) exposure to other viral communicable diseases; Z95.5 Presence of coronary angioplasty implant and graft; Z95.2 Presence of prosthetic heart valve; Z79.899 Other long term (current) drug therapy; Z79.02 Long term (current) use of antithrombotics/antiplatelets; Z98.41 Cataract extraction status, right eye; Z98.42 Cataract extraction status, left eye; Z96.1 Presence of intraocular lens; Z68.26 Body mass index [BMI] 26.0-26.9, adult; Z79.82 Long term (current) use of aspirin; Z82.0 Family history of epilepsy and other diseases of the nervous system
CPT/HCPCS: 96372; 93005 ×2; 99285; 36415; 93017; 93306; 97162; 97166; 85379; 83880; 80061; 80053 ×2; 82550; 83605; 83735; 84484; 85025 ×2; 85610; 85730; 87635; 71046; 71275; 78452; G0378 ×2; A9500; J1644; J2785; Q9967